=== PATIENT | female | born 1970 | race Caucasian/White ===

== ENCOUNTER 2018-09-03 11:29 | Emergency (ER) | payer BC ==
--- NOTE | 2018-09-03 12:16 | RAD REPORT ---
EXAM DESCRIPTION: Loan Single View09/03/2018 12:07 pm CLINICAL HISTORY: Cough COMPARISON: 2017 FINDINGS: The lungs appear clear of acute infiltrate. The heart is normal size IMPRESSION: No acute abnormalities displayed
[2018-09-03] MEDS ORDERED: DEXAMETHASONE 4 MG TAB ONE (12:52)
[2018-09-03] MEDS ORDERED: ALBUTEROL 2.5 MG/3 ML NEB SOL ONE (12:52)
[2018-09-03] MEDS ORDERED: ASPIRIN EC 81 MG TAB PO ONE (12:53)
[2018-09-03] MEDS ORDERED: HYDROCODONE/CHLORPHEN 5 ML/OSYR ONE (13:09)
--- NOTE | 2018-09-03 13:57 | ER ---
Nurse's Notes [facility] Name: Fiorella Painting Age: 47 yrs Sex: Female : 1970 Arrival Date: 09/03/2018 Time: 11:35 Bed 20 Private MD: Diagnosis: Bronchitis, not specified as acute or chronic Presentation: 09/03 11:37 Presenting complaint: Patient states: productive cough with green sputum x 2 weeks ago. aa5 Transition of care: patient was not received from another setting of care. Onset of symptoms was August 2018. Risk Assessment: Do you want to hurt yourself or someone else? Patient reports no desire to harm self or others. Care prior to arrival: None. 11:37 Method Of Arrival: Ambulatory aa5 11:37 Acuity: RAJ 3 aa5 GENERAL PRACTICE: 11:38 LMP N/A - Irregular menses aa5 Historical: - Allergies: 11:38 Oxycodone HCl; aa5 - Home Meds: 11:38 Metformin Oral [Active]; Paxil Oral [Active]; Seroquel Oral [Active]; aa5 - PMHx: 11:38 Depression; Diabetes - NIDDM; aa5 - PSHx: 11:38 None; aa5 - Immunization history:: Flu vaccine is not up to date. - Social history:: Smoking status: Patient uses tobacco products, smokes one pack cigarettes per day. - Ebola Screening: : No symptoms or risks identified at this time. Screenin:00 Abuse screen: Denies threats or abuse. Denies injuries from another. Nutritional bp screening: No deficits noted. Tuberculosis screening: No symptoms or risk factors identified. Fall Risk None identified. Assessment: 11:45 General: Appears in no apparent distress. comfortable, Behavior is cooperative, bp appropriate for age, anxious. Pain: Denies pain. Neuro: Level of Consciousness is awake, alert, obeys commands, Oriented to person, place, time, situation, Appropriate for age. Cardiovascular: No deficits noted. Respiratory: Reports cough that is. GI: No signs and/or symptoms were reported involving the gastrointestinal system. : No signs and/or symptoms were reported regarding the genitourinary system. EENT: No deficits noted. Derm: No deficits noted. Musculoskeletal: Circulation, motion, and sensation intact. Range of motion: intact in all extremities. 13:00 Reassessment: FAMILY IN ROUTE FOR D/C. VS STABLE ON MONITOR. bp Vital Signs: 11:38 BP 111 / 75; Pulse 71; Resp 18 S; Temp 98.4(TE); Pulse Ox 97% on R/A; Weight 65.77 kg aa5 (R); Height 5 ft. 6 in. (167.64 cm) (R); 13:00 BP 115 / 66; Pulse 64; Resp 16; Pulse Ox 100% ; bp 14:21 BP 108 / 62; Pulse 74; Resp 16; Temp 98.1; Pulse Ox 99% on R/A; Pain 0/10; ch 11:38 Body Mass Index 23.40 (65.77 kg, 167.64 cm) aa5 ED Course: 11:35 Patient arrived in ED. mr 11:37 Triage completed. aa5 11:37 Arm band placed on. aa5 11:42 Les Smith, SULEMA is Primary Nurse. bp 11:43 An Rahman FNP-C is PHCP. snw 11:43 Blaine Willis MD is Attending Physician. snw 12:00 Patient has correct armband on for positive identification. Bed in low position. Call bp light in reach. Side rails up X2. 12:05 X-ray completed. Portable x-ray completed in exam room. Patient tolerated procedure kp1 well. 12:07 Chest Single View XRAY - STROKE In Process Unspecified. EDMS 13:13 No provider procedures requiring assistance completed. Patient did not have IV access bp during this emergency room visit. Administered Medications: 12:40 Drug: Decadron 8 mg Route: PO; bp 13:10 Follow up: Response: No adverse reaction bp 12:40 Drug: Aspirin 81 mg Route: PO; bp 13:10 Follow up: Response: No adverse reaction bp 12:40 Drug: Albuterol 2.5 mg Route: Inhalation; bp 13:05 Drug: Tussionex Pennkinetic ER 5 ml Route: PO; bp Outcome: 13:57 Discharge ordered by . snw 14:21 Discharged to home ambulatory, with family. ch 14:21 Condition: stable 14:21 Discharge instructions given to patient, family, Instructed on discharge instructions, follow up and referral plans. medication usage, Demonstrated understanding of instructions, follow-up care, medications, Prescriptions given X 2. 14:22 Patient left the ED. Signatures: Dispatcher [employer] Yelena Barrett, RN RN An Rahman, STARCH FACTORY LABORER-C STARCH FACTORY LABORER-Joselinew Amanda Cheney Audri, RN RN aa5 Anum Chong [facility] Les Smith RN RN bp
--- NOTE | 2018-09-03 13:58 | EDPHYS ---
Physician Documentation [facility] Name: Fiorella Painting Age: 47 yrs Sex: Female : 1970 Arrival Date: 09/03/2018 Time: 11:35 Bed 20 Private MD: ED Physician Blaine Willis HPI: 09/03 12:36 This 47 yrs old Female presents to ER via Ambulatory with complaints of Cough.snw 12:36 The patient or guardian reports cough, described as moderate, with no sputum, pt just snw recovered from influenza last week. Onset: The symptoms/episode began/occurred suddenly, 2 week(s) ago. Severity of symptoms: At their worst the symptoms were moderate, severe. Associated signs and symptoms: Pertinent positives: chest pain, with cough, Pertinent negatives: fever. It is unknown whether or not the patient has had similar symptoms in the past. It is unknown whether or not the patient has recently seen a physician. CREDIT INTERN: 11:38 LMP N/A - Irregular menses aa5 Historical: - Allergies: 11:38 Oxycodone HCl; aa5 - Home Meds: 11:38 Metformin Oral [Active]; Paxil Oral [Active]; Seroquel Oral [Active]; aa5 - PMHx: 11:38 Depression; Diabetes - NIDDM; aa5 - PSHx: 11:38 None; aa5 - Immunization history:: Flu vaccine is not up to date. - Social history:: Smoking status: Patient uses tobacco products, smokes one pack cigarettes per day. - Ebola Screening: : No symptoms or risks identified at this time. ROS: 12:33 Constitutional: Negative for fever, chills, and weight loss, Eyes: Negative for injury, snw pain, redness, and discharge, ENT: Negative for injury, pain, and discharge, Neck: Negative for injury, pain, and swelling, Abdomen/GI: Negative for abdominal pain, nausea, vomiting, diarrhea, and constipation, Back: Negative for injury and pain, : Negative for injury, bleeding, discharge, and swelling, MS/Extremity: Negative for injury and deformity, Skin: Negative for injury, rash, and discoloration, Neuro: Negative for headache, weakness, numbness, tingling, and seizure. 12:33 Cardiovascular: Positive for chest pain, with cough. 12:33 Respiratory: Positive for cough, rarely productive, harsh cough. Exam: 12:32 Constitutional: This is a well developed, well nourished patient who is awake, alert, snw and in no acute distress. Head/Face: Normocephalic, atraumatic. Eyes: Pupils equal round and reactive to light, extra-ocular motions intact. Lids and lashes normal. Conjunctiva and sclera are non-icteric and not injected. Cornea within normal limits. Periorbital areas with no swelling, redness, or edema. ENT: Nares patent. No nasal discharge, no septal abnormalities noted. Tympanic membranes are normal and external auditory canals are clear. Oropharynx with no redness, swelling, or masses, exudates, or evidence of obstruction, uvula midline. Mucous membranes moist. Neck: Trachea midline, no thyromegaly or masses palpated, and no cervical lymphadenopathy. Supple, full range of motion without nuchal rigidity, or vertebral point tenderness. No Meningismus. Chest/axilla: Normal chest wall appearance and motion. Nontender with no deformity. No lesions are appreciated. Cardiovascular: Regular rate and rhythm with a normal S1 and S2. No gallops, murmurs, or rubs. Normal PMI, no JVD. No pulse deficits. Abdomen/GI: Soft, non-tender, with normal bowel sounds. No distension or tympany. No guarding or rebound. No evidence of tenderness throughout. Back: No spinal tenderness. No costovertebral tenderness. Full range of motion. MS/ Extremity: Pulses equal, no cyanosis. Neurovascular intact. Full, normal range of motion. Neuro: Awake and alert, GCS 15, oriented to person, place, time, and situation. Cranial nerves II-XII grossly intact. Motor strength 5/5 in all extremities. Sensory grossly intact. Cerebellar exam normal. Normal gait. 12:32 Respiratory: the patient does not display signs of respiratory distress, Respirations: normal, Breath sounds: are clear throughout, Bronchitic cough. 12:32 Skin: Appearance: Color: benjamín, Temperature: warm. Vital Signs: 11:38 BP 111 / 75; Pulse 71; Resp 18 S; Temp 98.4(TE); Pulse Ox 97% on R/A; Weight 65.77 kg aa5 (R); Height 5 ft. 6 in. (167.64 cm) (R); 13:00 BP 115 / 66; Pulse 64; Resp 16; Pulse Ox 100% ; bp 14:21 BP 108 / 62; Pulse 74; Resp 16; Temp 98.1; Pulse Ox 99% on R/A; Pain 0/10; ch 11:38 Body Mass Index 23.40 (65.77 kg, 167.64 cm) aa5 MDM: 11:54 Patient medically screened. snw 14:17 Data reviewed: vital signs, nurses notes. Data interpreted: Pulse oximetry: on room air snw is 100 %. Interpretation: normal. Counseling: I had a detailed discussion with the patient and/or guardian regarding: the historical points, exam findings, and any diagnostic results supporting the discharge/admit diagnosis, radiology results, the need for outpatient follow up, for definitive care, to return to the emergency department if symptoms worsen or persist or if there are any questions or concerns that arise at home. Special discussion: Based on the history and exam findings, there is no indication for further emergent testing or inpatient evaluation. I discussed with the patient/guardian the need to see the primary care provider for further evaluation of the symptoms. 09/03 11:43 Order name: Chest Single View XRAY - STROKE; Complete Time: 12:18 snw Administered Medications: 12:40 Drug: Decadron 8 mg Route: PO; bp 13:10 Follow up: Response: No adverse reaction bp 12:40 Drug: Aspirin 81 mg Route: PO; bp 13:10 Follow up: Response: No adverse reaction bp 12:40 Drug: Albuterol 2.5 mg Route: Inhalation; bp 13:05 Drug: Tussionex Pennkinetic ER 5 ml Route: PO; bp Disposition: 15:49 Co-signature as Attending Physician, Blaine Willis MD. ma2 Disposition: 09/03/18 13:57 Discharged to Home. Impression: Bronchitis, not specified as acute or chronic. - Condition is Stable. - Discharge Instructions: Chronic Bronchitis, Steps to Quit Smoking, Smoking Hazards. - Prescriptions for Zyrtec 10 mg Oral Tablet - take 1 tablet by ORAL route once daily As needed; 20 tablet. Albuterol Sulfate 90 mcg/actuation - inhale 1-2 puff by INHALATION route every 4-6 hours; 1 Inhaler. - Work release form, Medication Reconciliation Form, Thank You Letter, Antibiotic Education, Prescription Opioid Use form. - Follow up: Private Physician; When: 2 - 3 days; Reason: Recheck today's complaints, Continuance of care, Re-evaluation by your physician. Follow up: Emergency Department; When: As needed; Reason: Worsening of condition. Signatures: Dispatcher [employer] EDMS Yelena Wilkins RN RN ch An Rahman, LABEL DRIER-C LABEL DRIER-Csnw Sarah Hanks RN RN aa5 Les Smith RN RN bp Blaine Willis MD MD ma2 Corrections: (The following items were deleted from the chart) 14:22 13:57 09/03/2018 13:57 Discharged to Home. Impression: Bronchitis, not specified as ch acute or chronic. Condition is Stable. Discharge Instructions: Chronic Bronchitis, Steps to Quit Smoking, Smoking Hazards. Prescriptions for Zyrtec 10 mg Oral Tablet - take 1 tablet by ORAL route once daily As needed; 20 tablet, Albuterol Sulfate 90 mcg/actuation - inhale 1-2 puff by INHALATION route every 4-6 hours; 1 Inhaler. and Forms are Medication Reconciliation Form, Thank You Letter, Antibiotic Education, Prescription Opioid Use. Follow up: Private Physician; When: 2 - 3 days; Reason: Recheck today's complaints, Continuance of care, Re-evaluation by your physician. Follow up: Emergency Department; When: As needed; Reason: Worsening of condition. snw
[2018-09-03 15:11] VITALS: BP 108/62; TEMP 98.1; O2SAT 99
== END 2018-09-03 14:22 | disposition home or self-care (01) ==
LOC: ER 11:29
DX: J40 Bronchitis, not specified as acute or chronic (principal); E11.9 Type 2 diabetes mellitus without complications; F32.9 Major depressive disorder, single episode, unspecified; F17.210 Nicotine dependence, cigarettes, uncomplicated; Z79.4 Long term (current) use of insulin; Z88.5 Allergy status to narcotic agent
CPT/HCPCS: 71045; 99284

== ENCOUNTER 2019-11-09 22:54 | Inpatient (IN) | payer BC, SELFPAY ==
[2019-11-09 23:53] LABS: Absolute Lymphocytes (CBC) 3.3 K/uL (0.7-4.9); Basophils % 1.3 % (0-1.3); Hematocrit 45.3 % (36.0-45.0); Lymphocytes % 32.9 % (15.3-44.8); MPV 10.8 fL (7.6-11.3); RBC Red Blood Cell Count 4.94 M/uL (3.86-4.86)
[2019-11-10 00:13] LABS: Albumin 3.7 g/dL (3.4-5.0); Bilirubin Direct 0.1 mg/dL (0-0.2); Bilirubin Total 0.3 mg/dL (0.2-1.0); Potassium 4.2 mmol/L (3.5-5.1); Protein, Total 7.9 g/dL (6.4-8.2); Troponin (Emerg Dept Use Only) 0.37 ng/mL (0.0-0.045)
[2019-11-10] MEDS ORDERED: NITROGLYCERIN 0.4 MG/TAB SL ONE (00:17)
[2019-11-10] MEDS ORDERED: ALPRAZOLAM 0.25 MG TABLET PO PRN (00:29)
[2019-11-10] MEDS ORDERED: ONDANSETRON 4 MG/2 ML VIAL IV PRN (00:29)
[2019-11-10] MEDS ORDERED: ACETAMINOPHEN 500 MG TAB PO PRN (00:29)
[2019-11-10] MEDS ORDERED: CLOPIDOGREL 75 MG TABLET ONE (00:33)
[2019-11-10] MEDS ORDERED: ENOXAPARIN 80 MG/0.8 ML SQ ONE (00:33)
--- NOTE | 2019-11-10 00:57 | ER ---
Nurse's Notes [facility] Name: Fiorella Painting Age: 49 yrs Sex: Female : 1970 Arrival Date: 11/09/2019 Time: 22:55 Bed 7 Private MD: Diagnosis: Chest pain, unspecified;Non-ST elevation (NSTEMI) myocardial infarction Presentation: 11/08 23:10 Chief complaint: Patient states: I am having chest pain sharp, non radiating pain rr5 started this morning. i feel nauseous and Difficulty of breathing too. 23:10 Coronavirus screen: Proceed with normal triage. Ebola Screen: Patient negative for rr5 fever greater than or equal to 101.5 degrees Fahrenheit, and additional compatible Ebola Virus Disease symptoms Patient denies exposure to infectious person. Patient denies travel to an Ebola-affected area in the 21 days before illness onset. Initial Sepsis Screen: Does the patient meet any 2 criteria? No. Patient's initial sepsis screen is negative. Does the patient have a suspected source of infection? No. Patient's initial sepsis screen is negative. Risk Assessment: Do you want to hurt yourself or someone else? Patient reports no desire to harm self or others. Onset of symptoms was November 09, 2019. 23:10 Method Of Arrival: Ambulatory rr5 23:10 Acuity: RAJ 3 rr5 23:10 Care prior to arrival: Medication(s) given: ASA, 81 mg, x 2, patient medication. rr5 Triage Assessment: 23:15 General: Appears uncomfortable, Behavior is calm, cooperative. ls4 23:15 Pain: Complains of pain in anterior aspect of left upper chest and mid-sternal area ls4 Pain currently is 10 out of 10 on a pain scale. Quality of pain is described as crushing, sharp. Cardiovascular: Reports chest pain, nausea, shortness of breath, Denies diaphoresis, lightheadedness, palpitations, syncope, vomiting, Capillary refill < 3 seconds Patient's skin is warm and dry. Respiratory: Airway is patent Respiratory effort is even, unlabored, Respiratory pattern is regular. Derm: Skin is pink, warm \T\ dry. Musculoskeletal: No deficits noted. 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 - Social history:: Smoking status: Patient reports the use of cigarette tobacco products, smokes one-half pack cigarettes per day. - Family history:: not pertinent. - Hospitalizations: : No recent hospitalization is reported. Screenin:30 Abuse screen: Denies threats or abuse. Denies injuries from another. Nutritional rr5 screening: No deficits noted. Tuberculosis screening: No symptoms or risk factors identified. Fall Risk IV access (20 points). Total Zaragoza Fall Scale indicates No Risk (0-24 pts). Assessment: 11/09 00:30 Reassessment: Patient appears in no apparent distress at this time. Patient is alert, rr5 oriented x 3, equal unlabored respirations, skin warm/dry/pink. Patient states feeling better. Patient states symptoms have improved. 00:30 Pain: Pain currently is 5 out of 10 on a pain scale. rr5 01:48 General: see triage note. . ls4 02:03 Pain: Pain does not radiate. Pain began suddenly. rr5 Vital Signs: 11/08 23:10 BP 142 / 92; Pulse 77; Resp 17; Temp 98; Pulse Ox 98% ; Weight 65.77 kg; Height 5 ft. 6 rr5 in. (167.64 cm); Pain 10/10; 11/09 00:30 BP 126 / 90; Pulse 71; Resp 16; Pulse Ox 99% ; Pain 5/10; rr5 01:39 BP 135 / 86; Pulse 72; Resp 14; Pulse Ox 100% on R/A; Pain 4/10; ls4 11/08 23:10 Body Mass Index 23.40 (65.77 kg, 167.64 cm) rr5 ED Course: 11/08 22:55 Patient arrived in ED. ag3 23:15 Triage completed. rr5 23:15 Adolph Bellamy MD is Attending Physician. rn 23:15 Arm band placed on right wrist. rr5 23:15 Bed in low position. Call light in reach. Side rails up X 1. court recording monitor on. Pulse ls4 ox on. NIBP on. 23:15 Warm blanket given. Verbal reassurance given. Diet: Patient is NPO. ls4 23:25 Inserted saline lock: 18 gauge in right antecubital area, using aseptic technique. rr5 ,using aseptic technique. inserted by elida LEONE Blood collected. 23:46 XRAY Chest (1 view) In Process Unspecified. EDMS 11/09 00:27 Elida Wright, RN is Primary Nurse. ls4 00:56 Blaine Parrish MD is Hospitalizing Provider. rn 01:44 No provider procedures requiring assistance completed. ls4 02:03 IV is patent, with fluids infusing freely, with good blood return, Patient admitted, IV rr5 remains in place. Patient maintains SpO2 saturation greater than 95% on room air. Administered Medications: 00:14 Drug: Nitroglycerin 0.4 mg Route: Sublingual; ls4 02:02 Follow up: Response: No adverse reaction rr5 00:30 Drug: PlaVIX 75 mg Route: PO; rr5 02:02 Follow up: Response: No adverse reaction rr5 00:30 Drug: Lovenox 1 mg/kg Route: Sub-Q; Site: right lower abdomen; rr5 02:02 Follow up: Response: No adverse reaction rr5 Outcome: 00:56 Decision to Hospitalize by Provider. rn 02:01 Condition: stable rr5 02:02 Admitted to Med/surg accompanied by tech, via wheelchair, room 215, with chart, Report rr5 called to montrell leone 02:02 Instructed on the need for admit, Demonstrated understanding of instructions. 02:03 Patient left the ED. rr5 Signatures: Dispatcher [employer] EDND Adolph Bellamy MD MD rn Gomez, Alice ag3 Elida Wright, RN RN ls4 Og Munoz RN RN rr5
--- NOTE | 2019-11-10 02:05 | EDPHYS ---
Physician Documentation [facility] Name: Fiorella Painting Age: 49 yrs Sex: Female : 1970 Arrival Date: 11/09/2019 Time: 22:55 Bed 7 Private MD: ED Physician Adolph Bellamy HPI: 11/08 23:36 This 49 yrs old Female presents to ER via Ambulatory with complaints of Chest rn Pain. 23:36 The patient or guardian reports chest pain that is located primarily in the substernal rn area. Onset: this morning. The pain does not radiate. The chest pain is described as a heaviness, squeezing. Duration: The patient or guardian reports multiple episodes, that are intermittent. Modifying factors: The symptoms are alleviated by standing up. the symptoms are aggravated by nothing. Severity of pain: At its worst the pain was moderate in the emergency department the pain is unchanged. The patient has experienced a previous episode. Reports substernal chest pain, non-radiating, assoc with nausea, intermittent, no trauma, no fever/cough/abd pain. Reports steadily getting worse throughout the day.. 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 - Social history:: Smoking status: Patient reports the use of cigarette tobacco products, smokes one-half pack cigarettes per day. - Family history:: not pertinent. - Hospitalizations: : No recent hospitalization is reported. ROS: 23:36 Constitutional: Negative for fever, chills, and weight loss, Eyes: Negative for injury, rn pain, redness, and discharge, Neck: Negative for injury, pain, and swelling, Cardiovascular: Negative for palpitations, and edema, Respiratory: Negative for shortness of breath, cough, wheezing, and pleuritic chest pain, Abdomen/GI: Negative for abdominal pain, vomiting, diarrhea, and constipation, MS/Extremity: Negative for injury and deformity, Skin: Negative for injury, rash, and discoloration, Neuro: Negative for headache, weakness, numbness, tingling, and seizure. Exam: 23:36 Constitutional: This is a well developed, well nourished patient who is awake, alert, rn and in no acute distress. Ambulatory to room without difficulty or assistance. Head/Face: Normocephalic, atraumatic. Cardiovascular: Regular rate and rhythm with a normal S1 and S2. No gallops, murmurs, or rubs. No JVD. No pulse deficits. Respiratory: Lungs have equal breath sounds bilaterally, clear to auscultation. No increased work of breathing, no retractions or nasal flaring. Abdomen/GI: soft, non-tender Skin: Warm, dry with normal turgor. Normal color with no rashes, no lesions, and no evidence of cellulitis. MS/ Extremity: Pulses equal, no cyanosis. Neurovascular intact. Full, normal range of motion. Equal circumference. Neuro: Awake and alert, GCS 15, oriented to person, place, time, and situation. Cranial nerves II-XII grossly intact. Motor strength 5/5 in all extremities. Sensory grossly intact. Cerebellar exam normal. Normal gait. 23:36 ECG was reviewed by the Attending Physician. rn Vital Signs: 23:10 BP 142 / 92; Pulse 77; Resp 17; Temp 98; Pulse Ox 98% ; Weight 65.77 kg; Height 5 ft. 6 rr5 in. (167.64 cm); Pain 10/10; 08 00:30 BP 126 / 90; Pulse 71; Resp 16; Pulse Ox 99% ; Pain 5/10; rr5 01:39 BP 135 / 86; Pulse 72; Resp 14; Pulse Ox 100% on R/A; Pain 4/10; ls4 11/08 23:10 Body Mass Index 23.40 (65.77 kg, 167.64 cm) rr5 MDM: 11/08 23:15 Patient medically screened. rn 11/09 00:51 Differential diagnosis: acute myocardial infarction, coronary artery disease pleurisy, rn pneumothorax, stable angina, unstable angina. The patient was not given aspirin in the Emergency Department. Patient reports taking aspirin within the past 24 hours. Data reviewed: vital signs, nurses notes, lab test result(s), EKG, radiologic studies, plain films, and as a result, I will discharge patient. Counseling: I had a detailed discussion with the patient and/or guardian regarding: the historical points, exam findings, and any diagnostic results supporting the discharge/admit diagnosis, lab results, radiology results, the need for further work-up and treatment in the hospital. Response to treatment: the patient's symptoms have markedly improved after treatment, and as a result, I will admit patient. Admission orders: after a detailed discussion of the patient's condition and case, the admit orders are written by me. ED course: Pt with improved pain after nitro, + trop and inverted/biphasic twaves anteroseptal leads, admitted to Dr. Parrish. Took 2 full dose aspirin prior to arrival. Given plavix and lovenox here. . 11/08 23:32 Order name: Basic Metabolic Panel; Complete Time: 00:13 rn 11/08 23:32 Order name: CBC with Diff; Complete Time: 00: 11/08 23:32 Order name: LFT's; Complete Time: 00: 11/08 23:32 Order name: NT PRO-BNP; Complete Time: 00: 11/08 23:32 Order name: Troponin (emerg Dept Use Only); Complete Time: 00: rn 11/09 00:40 Order name: Lipid Profile [facility] 11/08 23:32 Order name: XRAY Chest (1 view) 11/08 23:32 Order name: EKG; Complete Time: 23:34 rn 11/09 00:40 Order name: Echo with Doppler [facility] 11/09 00:40 Order name: Troponin I [facility] 11/09 00:40 Order name: Troponin I [facility] 11/08 23:32 Order name: Cardiac monitoring; Complete Time: 00:28 rn 11/08 23:32 Order name: EKG - Nurse/Tech; Complete Time: 00:28 rn 11/08 23:32 Order name: IV Saline Lock; Complete Time: 00: rn 11/08 23:32 Order name: Labs collected and sent; Complete Time: 00:34 rn 11/08 23:32 Order name: O2 Per Protocol; Complete Time: 00:34 rn 11/08 23:32 Order name: O2 Sat Monitoring; Complete Time: 00:34 rn 11/09 00:40 Order name: CONS Physician Consult [facility] 11/09 00:40 Order name: EKG Electrocardiogram [facility] 11/09 00:40 Order name: EKG Electrocardiogram [facility] EC/07 23:36 Rate is 70 beats/min. Rhythm is regular. Right axis deviation noted. QRS is positive in rn lead aVF and negative in lead I. [place] interval is normal. QRS interval is normal. QT interval is normal. No Q waves. T waves are Inverted in leads V2, V3, V4, V5. No ST changes noted. Clinical impression: NSR w/ Non-specific ST/T Changes. Interpreted by me. Reviewed by me. Administered Medications: 11/09 00:14 Drug: Nitroglycerin 0.4 mg Route: Sublingual; ls4 02:02 Follow up: Response: No adverse reaction rr5 00:30 Drug: PlaVIX 75 mg Route: PO; rr5 02:02 Follow up: Response: No adverse reaction rr5 00:30 Drug: Lovenox 1 mg/kg Route: Sub-Q; Site: right lower abdomen; rr5 02:02 Follow up: Response: No adverse reaction rr5 Disposition: 11/10/19 00:56 Hospitalization ordered by Blaine Parrish for Inpatient Admission. Preliminary diagnosis are Chest pain, unspecified, Non-ST elevation (NSTEMI) myocardial infarction. - Bed requested for Telemetry/MedSurg (Inpatient). - Status is Inpatient Admission. rr5 - Condition is Stable. - Problem is new. - Symptoms have improved. Signatures: Dispatcher [employer] [facility] Estephanie Daniels RN RN dw Adolph Bellamy MD MD rn Stewart, Lisa, RN RN ls4 Og Munoz RN RN rr5 Corrections: (The following items were deleted from the chart) 01: 00:56 Hospitalization Ordered by Blaine Parrish MD for Inpatient Admission. Preliminary darby diagnosis is Chest pain, unspecified; Non-ST elevation (NSTEMI) myocardial infarction. Bed requested for Telemetry/MedSurg (Inpatient). Status is Inpatient Admission. Condition is Stable. Problem is new. Symptoms have improved. rn 02:03 01:11/10/2019 00:56 Hospitalization Ordered by Blaine Parrish MD for Inpatient rr5 Admission. Preliminary diagnosis is Chest pain, unspecified; Non-ST elevation (NSTEMI) myocardial infarction. Bed requested for Telemetry/MedSurg (Inpatient). Status is Inpatient Admission. Condition is Stable. Problem is new. Symptoms have improved. dw
[2019-11-10 03:55] VITALS: BMI 22.1
[2019-11-10 05:24] LABS: Magnesium 1.9 mg/dL (1.8-2.4); Phosphorus 3.1 mg/dL (2.5-4.9)
--- NOTE | 2019-11-10 08:32 | RAD REPORT ---
EXAM DESCRIPTION: RAD - Chest Single View - 11/09/2019 11:46 pm CLINICAL HISTORY: CHEST PAIN Chest pain. COMPARISON: Chest Single View dated 09/03/2018; Chest Single View dated 10/29/2016 FINDINGS: Portable technique limits examination quality. The lungs are grossly clear. The heart is normal in size. No displaced fractures. IMPRESSION: No acute intrathoracic process suspected.
[2019-11-10] MEDS ORDERED: ENOXAPARIN 40 MG/0.4 ML SQ SCH (09:00)
[2019-11-10] MEDS ORDERED: METOPROLOL TAR 50 MG TAB PO SCH (09:00)
[2019-11-10] MEDS ORDERED: CLOPIDOGREL 75 MG TABLET PO SCH (09:00)
[2019-11-10] MEDS ORDERED: ASPIRIN EC 81 MG TAB PO SCH (09:00)
[2019-11-10] MEDS ORDERED: PARoxetine HCL 10 MG TAB PO SCH (09:00)
[2019-11-10 09:02] LABS: Thyroid Stimulating Hormone 0.824 uIU/mL (0.360-3.740)
--- NOTE | 2019-11-10 09:07 | P.HP ---
Certification for Inpatient Patient admitted to: Inpatient With expected LOS: >2 Midnights Patient will require the following post-hospital care: None Practitioner: I am a practitioner with admitting privileges, knowledge of patient current condition, hospital course, and medical plan of care. Services: Services provided to patient in accordance with Admission requirements found in Title 42 Section 412.3 of the Code of Federal Regulations Patient History Date of Service: 11/10/19 Reason for admission: Chest pain and shortness of breath/non ST-elevation myocardial infarction History of Present Illness: Patient is a 49-year-old female who came to the hospital with chest discomfort. Pain was mainly in the substernal region. The patient described this chest pain as heaviness. She felt like someone was sitting on her chest. There was no radiation of the chest pain. Patient had some nausea as well as some shortness of breath. Decision was made to admit the patient to the hospital for evaluation. Patient's initial troponin was elevated. Patient be admitted to the hospital with a non ST-elevation myocardial infarction. Will get Cardiology consultation for further evaluation. The patient's troponin will be repeated in 8 hr. If this continues to be elevated and patient may need further intervention per Cardiology. Allergies oxycodone HCl [From OxyContin] Allergy (Mild, Verified 11/10/19 02:30) Nausea/Vomiting Home Medications: Metformin ER [Glucophage ER*] 1,000 mg PO BID 10/29/16 PARoxetine HCL [Paxil*] 20 mg PO DAILY 10/29/16 Quetiapine Fumarate [Seroquel] 100 mg PO BEDTIME 11/10/19 - Past Medical/Surgical History Has patient received pneumonia vaccine in the past: No Diabetic: Yes -: Type 2 diabetes -: depression Past Surgical History: Patient denies surgical history - Family History Father Medical History: Stroke - Social History Smoking Status: Current some day smoker Alcohol use: No CD- Drugs: No Caffeine use: Yes Place of Residence: Home Review of Systems 10-point ROS is otherwise unremarkable Physical Examination - Vital Signs Temperature: 97.2 F Blood Pressure: 97/57 Pulse: 70 Respirations: 18 Pulse Ox (%): 96 - Physical Exam General: Alert, In no apparent distress, Oriented x3 HEENT: Atraumatic, PERRLA, Mucous membr. moist/pink, EOMI, Sclerae nonicteric Neck: Supple, 2+ carotid pulse no bruit, No LAD, Without JVD or thyroid abnormality Respiratory: Clear to auscultation bilaterally, Normal air movement Cardiovascular: Regular rate/rhythm, Normal S1 S2, No murmurs Gastrointestinal: Normal bowel sounds, Soft and benign, Non-distended, No tenderness Musculoskeletal: No clubbing, No swelling, No tenderness Integumentary: No rashes Neurological: Normal gait, Normal speech, Normal strength at 5/5 x4 extr, Normal tone, Sensation intact, Cranial nerves 3-12 intact, Normal affect Lymphatics: No axilla or inguinal lymphadenopathy - Studies Laboratory Data (last 24 hrs) 11/09/19 23:39: WBC 10.0, Hgb 15.2 H, Hct 45.3 H, Plt Count 178 11/09/19 23:39: Sodium 137, Potassium 4.2, BUN 17, Creatinine 1.30, Glucose 308 H, Total Bilirubin 0.3, AST 27, ALT 41, Alkaline Phosphatase 106 Assessment & Plan - Problems (Diagnosis) (1) Chest pain, rule out acute myocardial infarction Current Visit: Yes Status: Acute (2) Non-ST elevation myocardial infarction (NSTEMI) Current Visit: Yes Status: Acute (3) Dyspnea Current Visit: Yes Status: Acute (4) Nausea Current Visit: Yes Status: Acute (5) Depression Current Visit: Yes Status: Acute (6) Type 2 diabetes mellitus Current Visit: Yes Status: Acute - Plan 1. Serial troponins and EKG 2. Cardiology consultation 3. Echocardiogram and further intervention per Cardiology 4. Anti-platelet therapy, anti coagulation, beta-ruthie, statin, and O2 as needed 5. IV morphine for pain 6. Nitro p.r.n. 7. Strict blood pressure and blood sugar control 8. GI and DVT prophylaxis Discharge Plan: Psychiatry - Advance Directives Does patient have a Living Will: No Does patient have a Durable POA for Healthcare: No - Code Status/Comfort Care Code Status Assessed: Yes Code Status: Full Code Critical Care: No Time Spent Managing PTS Care (In Minutes): 45
--- NOTE | 2019-11-10 10:35 | EKG ---
Test Date: 2019-11-09 Test Time: 23:28:50 Bar Helper: RR MEASUREMENT RESULTS: Intervals: Rate: 70 IA: 182 QRSD: 76 QT: 386 QTc: 416 [place]: P: 64 IA: 182 QRS: 100 T: 89 INTERPRETIVE STATEMENTS: Normal sinus rhythm Rightward axis T wave abnormality, consider anterior ischemia Abnormal ECG Compared to ECG 11/09/2019 23:28:25 No significant changes Electronically Signed On 11-10-19 10:34:40 CDT by Markus Parra
--- NOTE | 2019-11-10 10:35 | EKG ---
Test Date: 2019-11-09 Test Time: 23:28:25 Gas Engine Mechanic: RR MEASUREMENT RESULTS: Intervals: Rate: 81 ND: 190 QRSD: 76 QT: 374 QTc: 434 [place]: P: 77 ND: 190 QRS: 97 T: 86 INTERPRETIVE STATEMENTS: Normal sinus rhythm Possible Left atrial enlargement Rightward axis T wave abnormality, consider anterior ischemia Abnormal ECG No previous ECG available for comparison Electronically Signed On 11-10-19 10:34:41 CDT by Markus Parra
[2019-11-10] MEDS ORDERED: NA CHLORIDE 0.9% 500 ML IV ONE (12:09)
[2019-11-10] MEDS ORDERED: D50W 25 GM/50 ML SYRINGE/VIAL IV PRN (15:04)
[2019-11-10] MEDS ORDERED: GLUCAGON 1 MG/VIAL IM PRN (15:04)
--- NOTE | 2019-11-10 15:45 | P.DS ---
Admission Date: 11/10/19 Discharge Date: 11/10/19 Disposition: ROUTINE DISCHARGE Discharge Condition: GOOD Reason for Admission: Chest pain and shortness of breath/non ST-elevation myocardial infarction Consultations: Cardiology-Dr. Parra Procedures: ECHO: WNL per cardiology Medical problem list: Chest pain secondary to NSTEMI suspect CAD Hypertension Hyperlipidemia Diabetes mellitus type 2 Depression with anxiety Brief History of Present Illness: 49-year-old female with history of diabetes and depression presented with chest pain. Patient was found to have elevated troponin suspected NSTEMI. Patient admitted for further evaluation. Hospital Course: Patient presented with chest pain. Patient had elevated troponin suspected NSTEMI noted. Patient was seen and evaluated by Cardiology. Cardiology performed echocardiogram which was unremarkable. Cardiology recommends medical therapy at this time. At discharge patient will continue with aspirin 81 mg daily, Lipitor 80 mg daily, folic acid 1 mg daily, and metoprolol 12.5 mg daily. May need to hold blood pressure medication metoprolol if blood pressure systolic less than 110. Patient will need a follow up with cardiology within 1 week to further monitor and address. Patient with diabetes mellitus type 2. A1c 8.8. Patient needs better control. At discharge patient will continue with metformin a 1000 mg 1 pill twice daily. Glipizide 5 mg daily has been added. Recommend to maintain blood sugar less 140 fasting and less than 200 after meals. Further adjustment may be required. This can be done with the help of her PCP. Patient with depression with anxiety. At discharge she will continue with Paxil 20 mg daily and Seroquel 100 mg daily. Vital Signs/Physical Exam: Temp Pulse Resp BP Pulse Ox 97.2 F 65 16 93/60 96 11/10/19 12:00 11/10/19 12:00 11/10/19 12:00 11/10/19 12:00 11/10/19 12:00 General: Alert, In no apparent distress, Oriented x3, Cooperative HEENT: Atraumatic Neck: Supple Respiratory: Clear to auscultation bilaterally, Normal air movement Cardiovascular: Normal pulses, Regular rate/rhythm Gastrointestinal: Normal bowel sounds, Soft and benign, Non-distended Integumentary: No erythema, No warmth, No cyanosis Neurological: Normal speech, Normal strength at 5/5 x4 extr, Normal tone, Normal affect Laboratory Data at Discharge: WBC 10.0 K/uL (4.3-10.9) 11/09/19 23:39 Hgb 15.2 g/dL (12.0-15.0) H 11/09/19 23:39 Hct 45.3 % (36.0-45.0) H 11/09/19 23:39 Plt Count 178 K/uL (152-406) 11/09/19 23:39 Sodium 137 mmol/L (136-145) 11/09/19 23:39 Potassium 4.2 mmol/L (3.5-5.1) 11/09/19 23:39 BUN 17 mg/dL (7-18) 11/09/19 23:39 Creatinine 1.30 mg/dL (0.55-1.3) 11/09/19 23:39 Glucose 308 mg/dL (74-106) H 11/09/19 23:39 Phosphorus Cancelled 11/10/19 05:00 Magnesium Cancelled 11/10/19 05:00 Total Bilirubin 0.3 mg/dL (0.2-1.0) 11/09/19 23:39 AST 27 U/L (15-37) 11/09/19 23:39 ALT 41 U/L (12-78) 11/09/19 23:39 Alkaline Phosphatase 106 U/L (45-117) 11/09/19 23:39 Troponin I 2.05 ng/mL (0.0-0.045) H* 11/10/19 12:58 Triglycerides 165 mg/dL (<150) H 11/10/19 04:14 Cholesterol 198 mg/dL (<200) 11/10/19 04:14 HDL Cholesterol 45 mg/dL (40-60) 11/10/19 04:14 Cholesterol/HDL Ratio 4.40 11/10/19 04:14 Home Medications: Metformin ER [Glucophage ER*] 1,000 mg PO BID 10/29/16 PARoxetine HCL [Paxil*] 20 mg PO DAILY 10/29/16 Aspirin [Aspirin EC 81 MG] 81 mg PO DAILY #90 tablet. 11/10/19 Atorvastatin Calcium [Lipitor] 80 mg PO DAILY #30 tablet 11/10/19 Folic Acid 1 mg PO DAILY #30 tablet 11/10/19 Metoprolol Tartrate 12.5 mg PO DAILY #30 tablet 11/10/19 Quetiapine Fumarate [Seroquel] 100 mg PO BEDTIME 11/10/19 glipiZIDE [Glipizide] 5 mg PO DAILY #90 tablet 11/10/19 New Medications: Aspirin [Aspirin EC 81 MG] 81 mg PO DAILY #90 tablet. Folic Acid 1 mg PO DAILY #30 tablet glipiZIDE [Glipizide] 5 mg PO DAILY #90 tablet Atorvastatin Calcium [Lipitor] 80 mg PO DAILY #30 tablet Metoprolol Tartrate 12.5 mg PO DAILY #30 tablet Patient Discharge Instructions: 1. Recommend follow up with PCP in 1 week to follow up this hospitalization. 2. Patient presented with chest pain. Patient had elevated troponin suspected NSTEMI noted. Patient was seen and evaluated by Cardiology. Cardiology performed echocardiogram which was unremarkable. Cardiology recommends medical therapy at this time. At discharge patient will continue with aspirin 81 mg daily, Lipitor 80 mg daily, folic acid 1 mg daily, and metoprolol 12.5 mg daily. May need to hold blood pressure medication metoprolol if blood pressure systolic less than 110. Patient will need a follow up with cardiology within 1 week to further monitor and address. 3. Patient with diabetes mellitus type 2. A1c 8.8. Patient needs better control. At discharge patient will continue with metformin a 1000 mg 1 pill twice daily. Glipizide 5 mg daily has been added. Recommend to maintain blood sugar less 140 fasting and less than 200 after meals. Further adjustment may be required. This can be done with the help of her PCP. 4. Patient with depression with anxiety. At discharge she will continue with Paxil 20 mg daily and Seroquel 100 mg daily. Diet: ADA Activity: Ad lópez Time spent managing pt's care (in minutes): 55
[2019-11-10 16:04] VITALS: O2SAT 97
[2019-11-10 16:28] VITALS: BP 103/70; TEMP 97.4
[2019-11-10] MEDS ORDERED: INSULIN -REGULAR HUMAN 50 UNIT/0.5 ML ML SQ SCH (16:30)
[2019-11-10] MEDS ORDERED: QUETIAPINE 100MG TAB PO SCH (21:00)
[2019-11-10] MEDS ORDERED: ATORVASTATIN 20 MG TAB PO SCH (21:00)
--- NOTE | 2019-11-11 06:34 | CON ---
Date of Consultation: 11/10/2019 Ms. Painting is a 49-year-old woman. She was admitted to Dr. Parrish's service on 11/10/2019. [facility] Reason For Consultation: Chest pain, elevated troponin. History Of Present Illness: Ms. Painting is a patient who is 49, has no previous cardiac history in the past, came in with diabetes, anxiety, depression, and chest pain that is midsternal radiating to the back, that has been going on for about a week. It resolved yesterday after use of aspirin and beta- ruthie. She is pain-free now. She denied any PND, orthopnea, pedal edema, palpitations, or syncope . She denied any nausea or vomiting or diaphoresis or shortness of breath. Family History: Negative. Medications: At home metformin, Paxil, and Seroquel. Review of Systems: Negative. Social History: Positive for tobacco. Family History: Noncontributory. Physical Examination: General: She was in no acute distress. No chest pain. Normal rhythm. HEENT: Negative. Neck: Supple without any bruit, lymphadenopathy, JVD, or thyromegaly. Chest: Clear to auscultation and percussion. Cardiac: Revealed a regular rhythm and rate. No murmurs, gallops, or rubs. Abdomen: Benign. Extremities: Revealed no clubbing, cyanosis, or edema. Diagnostic Data: Her glucose was 308. Her troponin is 1.51. The rest of the blood work is unremark able. Her chest x-ray was negative. EKG showed possible anterior ischemia. Impression And Plan: Chest pain with abnormal EKG, elevated troponin suggestive of acute coronary sy ndrome. Patient is pain-free right now. She has multiple cardiac risk factors including diabetes an d high triglyceride and history of smoking. Ms. Painting is presently on aspirin, Lovenox Lipitor, beta blockers, and insulin. She is pain-free. She is also on Paxil and Seroquel. I suggested a heart c atheterization on Ms. Painting when I was discussing the case with her, but she is hesitant at this poin t. She preferred to be treated medically and I agreed with her. I think if she continues to have ch est pain despite beta-blockers, aspirin, and statin therapy, I think she needs to be cathed to rule o ut coronary artery disease. I will make sure Ms. Painting sees me in the office in the next few days. Case was discussed with Dr. Valdivia. Her diabetes is very poorly controlled and that needs to be addr essed. JORGE L/MODL Voice ID: [id number] Report ID: [id number]
--- NOTE | 2019-11-13 07:37 | ECHO ---
HEIGHT: 5 ft 6.5 in WEIGHT: 139 lb 1.6 oz DATE OF STUDY: 11/10/[address]: Blaine Parrish MD 2-DIMENSIONAL: YES M.MODE: YES DOPPLER: YES COLOR FLOW: YES TDS: YES PORTABLE: DEFINITY: BUBBLE STUDY: DIAGNOSIS: NON-ST ELEVATION MYOCARDIAL INFARCTION CARDIAC HISTORY: CATHERIZATION: NO SURGERY: NO PROSTHETIC VALVE: NO PACEMAKER: NO MEASUREMENTS (cm) DIASTOLIC (NORMALS) SYSTOLIC (NORMALS) IVSd 0.9 (0.6-1.2) LA Diam 2.5 (1.9-4.0) LVEF 75% LVIDd 4.0 (3.5-5.7) LVIDs 2.3 (2.0-3.5) %FS 44% LVPWd 1.0 (0.6-1.2) Ao Diam 2.4 (2.0-3.7) 2 DIMENSIONAL ASSESSMENT: RIGHT ATRIUM: NORMAL LEFT ATRIUM: NORMAL RIGHT VENTRICLE: NORMAL LEFT VENTRICLE: NORMAL TRICUSPID VALVE: NORMAL MITRAL VALVE: NORMAL PULMONIC VALVE: NORMAL AORTIC VALVE: NORMAL PERICARDIAL EFFUSION: NONE AORTIC ROOT: NORMAL LEFT VENTRICULAR WALL MOTION: NORMAL DOPPLER/COLOR FLOW: NORMAL COMMENTS: NORMAL 2-DIMENSIONAL ECHOCARDIOGRAM WITH DOPPLER. NO WALL MOTION ABNORMALITY. NO EFFUSION. TECHNICALLY DIFFICULT STUDY. TECHNOLOGIST: LUCILA CARCAMO
== END 2019-11-10 18:02 | disposition home or self-care (01) | DRG 282 ==
LOC: ER 22:54 → ERHOLD 11-10 00:47 → 2ND 11-10 01:55
PROVIDERS: ADMIT Hospitalist; ATTEND Hospitalist
DX: I21.4 Non-ST elevation (NSTEMI) myocardial infarction (principal); I25.10 Atherosclerotic heart disease of native coronary artery without angina pectoris; E11.9 Type 2 diabetes mellitus without complications; I10 Essential (primary) hypertension; F41.8 Other specified anxiety disorders; E78.5 Hyperlipidemia, unspecified; F17.200 Nicotine dependence, unspecified, uncomplicated; Z79.84 Long term (current) use of oral hypoglycemic drugs; Z79.82 Long term (current) use of aspirin; Z79.899 Other long term (current) drug therapy; Z88.5 Allergy status to narcotic agent
CPT/HCPCS: 36415; 71045; 80048; 80061; 80076; 82947; 83036; 83735; 83880; 84100; 84439; 84443; 84484; 85025; 93005; 93306; 96372; 99285; J1650; J7040

== ENCOUNTER 2021-09-29 18:41 | Emergency (ER) | payer OTHER, SELFPAY ==
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
[2021-09-29] MEDS ORDERED: KETOROLAC 30 MG/ML INJ ONE (20:12)
[2021-09-29] MEDS ORDERED: CYCLOBENZAPRINE 10 MG TAB ONE (20:12)
[2021-09-29 21:22] VITALS: BP 151/85; O2SAT 98
[2021-09-29 21:23] VITALS: TEMP 97.7
== END 2021-09-29 20:18 | disposition home or self-care (01) ==
LOC: ER 18:41
DX: M54.50 Low back pain, unspecified (principal); M54.2 Cervicalgia; V49.40XA Driver injured in collision with unspecified motor vehicles in traffic accident, initial encounter; E11.9 Type 2 diabetes mellitus without complications; F32.A Depression, unspecified; Z88.5 Allergy status to narcotic agent; Z72.0 Tobacco use
CPT/HCPCS: 70450; 71250; 72125; 96372; 99284

== ENCOUNTER 2022-04-30 17:45 | Emergency (ER) | payer SELFPAY ==
--- NOTE | 2022-04-30 19:34 | ER ---
Nurse's Notes [facility] Name: Fiorella Painting Age: 51 yrs Sex: Female : 1970 Arrival Date: 04/30/2022 Time: 17:51 Bed 24 Private MD: Diagnosis: Acute upper respiratory infection, unspecified Presentation: 04/30 18:07 Chief complaint:. ld1 18:09 Chief complaint: Patient states: Body aches, chills, cough, fatigue X 3 days. ld1 Coronavirus screen: Client presents with at least one sign or symptom that may indicate coronavirus-19. Standard/surgical mask placed on the client. Ebola Screen: No symptoms or risks identified at this time. Initial Sepsis Screen: Does the patient meet any 2 criteria? No. Patient's initial sepsis screen is negative. Does the patient have a suspected source of infection? No. Patient's initial sepsis screen is negative. Risk Assessment: Do you want to hurt yourself or someone else? Patient reports no desire to harm self or others. Onset of symptoms was April 30, 2022. 18:09 Method Of Arrival: Ambulatory ld1 18:09 Acuity: RAJ 4 ld1 Triage Assessment: 18:07 Headache History: Denies prior headaches. General: Appears in no apparent distress. ld1 comfortable, Behavior is calm, cooperative, appropriate for age. Pain: Denies pain. EENT: Eyes AUSTYN eyes burning. Neuro: Level of Consciousness is awake, alert, obeys commands, Oriented to person, place, time, situation. Cardiovascular: Capillary refill < 3 seconds Patient's skin is warm and dry. Respiratory: Airway is patent Respiratory effort is even, unlabored. GI: Abdomen is flat, non-distended. : No signs and/or symptoms were reported regarding the genitourinary system. Derm: No signs and/or symptoms reported regarding the dermatologic system. Musculoskeletal: No signs and/or symptoms reported regarding the musculoskeletal system. 18:53 Pain: Also complains of diaphoresis. 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 - Social history:: Smoking status: Patient reports the use of cigarette tobacco products, smokes one-half pack cigarettes per day, Patient/guardian denies using alcohol. Screenin:52 Abuse screen: Denies threats or abuse. Denies injuries from another. Nutritional eh3 screening: No deficits noted. Tuberculosis screening: No symptoms or risk factors identified. Fall Risk None identified. Assessment: 18:52 General: Appears in no apparent distress. uncomfortable, Behavior is calm, cooperative, eh3 appropriate for age. Pain: Complains of pain in head Pain currently is 7 out of 10 on a pain scale. Quality of pain is described as aching, Pain began 2-3 days ago. Is continuous. Neuro: Level of Consciousness is awake, alert, obeys commands, Oriented to person, place, time, situation. Cardiovascular: Capillary refill < 3 seconds Patient's skin is warm and dry. Respiratory: Airway is patent Respiratory effort is even, unlabored, Respiratory pattern is regular, symmetrical. GI: No signs and/or symptoms were reported involving the gastrointestinal system. : No signs and/or symptoms were reported regarding the genitourinary system. EENT: No signs and/or symptoms were reported regarding the EENT system. Derm: No signs and/or symptoms reported regarding the dermatologic system. Musculoskeletal: Circulation, motion, and sensation intact. Range of motion: intact in all extremities. Vital Signs: 18:07 BP 107 / 70; Pulse 82; Resp 18; Temp 97.9(TE); Pulse Ox 96% on R/A; Weight 49.9 kg; ld1 Height 5 ft. 6 in. (167.64 cm); Pain 0/10; 18:53 BP 92 / 60; Pulse 78; Resp 16; Temp 98.5(O); Pulse Ox 98% on R/A; eh3 18:07 Body Mass Index 17.75 (49.90 kg, 167.64 cm) ld1 ED Course: 17:51 Patient arrived in ED. mr 18:07 Arm band placed on right wrist. ld1 18:10 Triage completed. ld1 18:11 Yvonne Bynum FNP-C is [facility]. kb 18:12 Jorge Jenkins MD is Attending Physician. kb 18:46 Wong, Marci, RN is Primary Nurse. eh3 18:52 Patient has correct armband on for positive identification. Bed in low position. Call eh3 light in reach. Side rails up X2. Client placed on continuous cardiac and pulse oximetry monitoring. NIBP monitoring applied. Door closed. Noise minimized. 19:34 No provider procedures requiring assistance completed. Patient did not have IV access eh3 during this emergency room visit. Administered Medications: No medications were administered Medication: 19:34 VIS not applicable for this client. eh3 Outcome: 19:33 Discharge ordered by MD. kb 19:46 Patient left the ED. eh3 Signatures: Yvonne Bynum, FITNESS SALES ASSOCIATE-C FITNESS SALES ASSOCIATE-Amanda Enriquez Lauren, RN RN ld1 Marci Wong, RN RN eh3
--- NOTE | 2022-04-30 19:34 | EDPHYS ---
Physician Documentation [facility] Name: Fiorella Painting Age: 51 yrs Sex: Female : 1970 Arrival Date: 04/30/2022 Time: 17:51 Bed 24 Private MD: ED Physician Jorge Jenkins HPI: 04/30 19:56 This 51 yrs old Female presents to ER via Ambulatory with complaints of Headache, Body kb aches, Eye Problem. 19:56 The patient or guardian reports cough, that is intermittent, described as mild, flu kb symptoms, low-grade fever, myalgias. Onset: The symptoms/episode began/occurred 5 day(s) ago. Severity of symptoms: At their worst the symptoms were mild, moderate, in the emergency department the symptoms are unchanged. Modifying factors: The symptoms are alleviated by nothing, the symptoms are aggravated by nothing. Associated signs and symptoms: Pertinent positives: rhinorrhea, Pertinent negatives: chest pain, diarrhea, ear ache, fever, nausea, sore throat, vomiting. The patient has not experienced similar symptoms in the past. The patient has not recently seen a physician. Pt reports cough, congestion, runny nose, bodyaches, chills for 5 days. Exposed to covid just prior to onset of symptoms. 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 - Social history:: Smoking status: Patient reports the use of cigarette tobacco products, smokes one-half pack cigarettes per day, Patient/guardian denies using alcohol. ROS: 19:55 Abdomen/GI: Negative for abdominal pain, nausea, vomiting, diarrhea, and constipation. kb 19:55 Constitutional: Positive for body aches, chills, fatigue, malaise. 19:55 ENT: Positive for rhinorrhea, sinus congestion. 19:55 Respiratory: Positive for cough. 19:55 All other systems are negative. Exam: 19:55 Constitutional: This is a well developed, well nourished patient who is awake, alert, kb and in no acute distress. Head/Face: Normocephalic, atraumatic. ENT: Moist Mucous membranes Cardiovascular: Regular rate and rhythm with a normal S1 and S2. No gallops, murmurs, or rubs. No pulse deficits. Respiratory: Respirations even and unlabored. No increased work of breathing. Talking in full sentences Skin: Warm, dry with normal turgor. Normal color. MS/ Extremity: Pulses equal, no cyanosis. Neurovascular intact. Full, normal range of motion. Neuro: Awake and alert, GCS 15, oriented to person, place, time, and situation. Moves all extremities. Normal gait. Vital Signs: 18:07 BP 107 / 70; Pulse 82; Resp 18; Temp 97.9(TE); Pulse Ox 96% on R/A; Weight 49.9 kg; ld1 Height 5 ft. 6 in. (167.64 cm); Pain 0/10; 18:53 BP 92 / 60; Pulse 78; Resp 16; Temp 98.5(O); Pulse Ox 98% on R/A; eh3 18:07 Body Mass Index 17.75 (49.90 kg, 167.64 cm) ld1 MDM: 18:12 Patient medically screened. kb 19:55 Data reviewed: vital signs, nurses notes. Data interpreted: Pulse oximetry: on room air kb is 98 %. Interpretation: normal. Counseling: I had a detailed discussion with the patient and/or guardian regarding: the historical points, exam findings, and any diagnostic results supporting the discharge/admit diagnosis, lab results, the need for outpatient follow up, a family practitioner, to return to the emergency department if symptoms worsen or persist or if there are any questions or concerns that arise at home. 04/30 18:35 Order name: Flu; Complete Time: 19:20 kb 04/30 18:35 Order name: COVID-19 SARS RT PCR (Document "Date of Onset" if Symptomatic); Complete kb Time: 19:30 Administered Medications: No medications were administered Disposition Summary: 04/30/22 19:33 Discharge Ordered Location: Home kb Condition: Stable kb Diagnosis - Acute upper respiratory infection, unspecified kb Followup: kb - With: Emergency Department - When: As needed - Reason: Worsening of condition Followup: kb - With: Private Physician - When: 2 - 3 days - Reason: Recheck today's complaints, Continuance of care, Re-evaluation by your physician Discharge Instructions: - Discharge Summary Sheet kb - Upper Respiratory Infection, Adult, [id number] kb - Viral Respiratory Infection, [id number] kb - Form - Return To Work eh3 - Form - Excuse from Work, School, or Physical Activity eh3 Forms: - Work release form kb - Medication Reconciliation Form kb - Thank You Letter kb - Antibiotic Education kb - Prescription Opioid Use kb Signatures: Dispatcher [employer] Yvonne Bell, Vee Leo, RN RN ld1
[2022-04-30 20:31] VITALS: BP 92/60; TEMP 98.5; O2SAT 98
== END 2022-04-30 19:46 | disposition home or self-care (01) ==
LOC: ER 17:45
DX: J06.9 Acute upper respiratory infection, unspecified (principal); Z20.822 Contact with and (suspected) exposure to COVID-19; F17.210 Nicotine dependence, cigarettes, uncomplicated
CPT/HCPCS: 87804; 99281; U0003

== ENCOUNTER 2022-05-04 11:02 | Emergency (ER) | payer SELFPAY ==
[2022-05-04 13:27] LABS: SARS-CoV-2 Antigen Rapid Res Positive (Negative)
--- NOTE | 2022-05-04 13:34 | ER ---
Nurse's Notes [facility] Name: Fiorella Painting Age: 51 yrs Sex: Female : 1970 Arrival Date: 05/04/2022 Time: 11:04 Bed 17 Private MD: Diagnosis: SARS-associated coronavirus as the cause of diseases classified elsewhere Presentation: 05/04 11:17 Chief complaint: Patient states: my back is hurting, my ankles and knees hurt, iw nauseated, fever, not eating X 3-4 days , her daughter had COVID last week. Coronavirus screen: Client presents with at least one sign or symptom that may indicate coronavirus-19. Ebola Screen: Patient negative for fever greater than or equal to 101.5 degrees Fahrenheit, and additional compatible Ebola Virus Disease symptoms Patient denies exposure to infectious person. Patient denies travel to an Ebola-affected area in the 21 days before illness onset. No symptoms or risks identified at this time. Initial Sepsis Screen: Does the patient meet any 2 criteria? No. Patient's initial sepsis screen is negative. Does the patient have a suspected source of infection? No. Patient's initial sepsis screen is negative. Risk Assessment: Do you want to hurt yourself or someone else? Patient reports no desire to harm self or others. Onset of symptoms was May 02, 2022. 11:17 Method Of Arrival: Ambulatory iw 11:17 Acuity: RAJ 3 iw Historical: - Allergies: 11:19 Oxycodone HCl; iw - Home Meds: 11:19 Paxil Oral [Active]; Glimepiride Oral [Active]; iw - PMHx: 11:19 Depression; Diabetes - NIDDM; Hypercholesterolemia; iw - PSHx: 11:19 None; iw - Immunization history:: Client reports receiving the 2nd dose of the Covid vaccine. - Social history:: Smoking status: Patient reports the use of cigarette tobacco products, smokes one-half pack cigarettes per day. Screenin:56 Abuse screen: Denies threats or abuse. Denies injuries from another. Nutritional ko1 screening: No deficits noted. Tuberculosis screening: No symptoms or risk factors identified. Fall Risk None identified. Assessment: 11:56 General: Appears in no apparent distress. uncomfortable, Behavior is calm, cooperative, ko1 appropriate for age. Pain: Complains of pain in generalized. Neuro: Level of Consciousness is awake, alert, obeys commands, Oriented to person, place, time, situation, Appropriate for age. Cardiovascular: No deficits noted. Respiratory: Reports cough that is productive. GI: No deficits noted. : No deficits noted. EENT: No deficits noted. Derm: No deficits noted. Musculoskeletal: No deficits noted. 13:00 Reassessment: No changes from previously documented assessment. Patient and/or family em6 updated on plan of care and expected duration. Pain level reassessed. Patient is alert, oriented x 3, equal unlabored respirations, skin warm/dry/pink. Vital Signs: 11:17 BP 108 / 79; Pulse 86; Resp 18; Temp 97.6; Pulse Ox 98% on R/A; iw 12:47 BP 115 / 75; Pulse 83; Resp 16; Pulse Ox 100% on R/A; em6 13:53 BP 116 / 72; Pulse 78; Resp 16; Pulse Ox 100% ; em6 ED Course: 11:04 Patient arrived in ED. am2 11:05 An Kearns FNP-C is PHCP. snw 11:05 Isac Randolph MD is Attending Physician. snw 11:06 An Kearns FNP-C is PHCP. snw 11:19 Triage completed. iw 11:20 Arm band placed on. iw 11:33 Anum Chung, RN is Primary Nurse. ko1 11:39 Strep Sent. ko1 11:39 Flu Sent. ko1 11:39 SARS RAPID Sent. ko1 11:56 Patient has correct armband on for positive identification. Bed in low position. Call ko1 light in reach. Side rails up X 1. 11:56 No provider procedures requiring assistance completed. ko1 14:02 Patient did not have IV access during this emergency room visit. em6 Administered Medications: 03:45 Drug: Ketorolac 30 mg Route: IM; Site: right deltoid; em6 14:02 Follow up: Response: No adverse reaction em6 03:45 Drug: Pepcid (famotidine) 20 mg Route: PO; em6 14:01 Follow up: Response: No adverse reaction em6 13:45 Drug: ZyrTEC - Cetirizine 10 mg Route: PO; em6 14:02 Follow up: Response: No adverse reaction em6 13:45 Drug: Aspirin Chewable Tablet 324 mg Route: PO; em6 14:01 Follow up: Response: No adverse reaction em6 Medication: 14:02 VIS not applicable for this client. em6 Outcome: 13:33 Discharge ordered by MD. chowdhury 14:02 Discharged to home em6 14:02 Discharged to home ambulatory. 14:02 Condition: stable 14:02 Discharge instructions given to patient, Instructed on discharge instructions, follow up and referral plans. medication usage, Demonstrated understanding of instructions, follow-up care, medications, Prescriptions given X 1. 14:03 Patient left the ED. em6 Signatures: An Kearns, FORENSIC IDENTIFICATION SPECIALIST-C FORENSIC IDENTIFICATION SPECIALIST-Csnw Angelita Prince, RN Deepika Albarado Erika RN RN em6 Anum Chung RN RN ko1
--- NOTE | 2022-05-04 13:34 | EDPHYS ---
Physician Documentation [facility] Name: Fiorella Painting Age: 51 yrs Sex: Female : 1970 Arrival Date: 05/04/2022 Time: 11:04 Bed 17 Private MD: ED Physician Isac Randolph HPI: 05/04 11:32 This 51 yrs old Female presents to ER via Ambulatory with complaints of Fever, snw bodyaches, Back Pain. 11:32 The patient reports fever, that was measured at 101 degrees Fahrenheit. Onset: The snw symptoms/episode began/occurred gradually, 6 day(s) ago, and became persistent. Associated signs and symptoms: Pertinent positives: chills, cough, decreased appetite, sinus congestion. Severity of symptoms: At their worst the symptoms were moderate. The patient has not experienced similar symptoms in the past, but family has similar symptoms, daughter, dx with Covid last week. The patient has not recently seen a physician. Historical: - Allergies: 11:19 Oxycodone HCl; iw - Home Meds: 11:19 Paxil Oral [Active]; Glimepiride Oral [Active]; iw - PMHx: 11:19 Depression; Diabetes - NIDDM; Hypercholesterolemia; iw - PSHx: 11:19 None; iw - Immunization history:: Client reports receiving the 2nd dose of the Covid vaccine. - Social history:: Smoking status: Patient reports the use of cigarette tobacco products, smokes one-half pack cigarettes per day. ROS: 11:31 Eyes: Negative for injury, pain, redness, and discharge, ENT: Negative for injury, snw pain, and discharge, Neck: Negative for injury, pain, and swelling, Cardiovascular: Negative for chest pain, palpitations, and edema, Respiratory: Negative for shortness of breath, cough, wheezing, and pleuritic chest pain, Abdomen/GI: Negative for abdominal pain, nausea, vomiting, diarrhea, and constipation. 11:31 : Negative for injury, bleeding, discharge, and swelling, MS/Extremity: Negative for injury and deformity, Skin: Negative for injury, rash, and discoloration, Neuro: Negative for headache, weakness, numbness, tingling, and seizure. 11:31 Constitutional: Positive for body aches, chills, fever, malaise, poor PO intake. 11:31 Back: Positive for pain at rest. Exam: 11:31 Constitutional: This is a well developed, well nourished patient who is awake, alert, snw and in no acute distress. Head/Face: Normocephalic, atraumatic. Eyes: Pupils equal round and reactive to light, extra-ocular motions intact. Lids and lashes normal. Conjunctiva and sclera are non-icteric and not injected. Cornea within normal limits. Periorbital areas with no swelling, redness, or edema. ENT: Nares patent. No nasal discharge, no septal abnormalities noted. Tympanic membranes are normal and external auditory canals are clear. Oropharynx with no redness, swelling, or masses, exudates, or evidence of obstruction, uvula midline. Mucous membranes moist. Neck: Trachea midline, no thyromegaly or masses palpated, and no cervical lymphadenopathy. Supple, full range of motion without nuchal rigidity, or vertebral point tenderness. No Meningismus. Chest/axilla: Normal chest wall appearance and motion. Nontender with no deformity. No lesions are appreciated. Cardiovascular: Regular rate and rhythm with a normal S1 and S2. No gallops, murmurs, or rubs. Normal PMI, no JVD. No pulse deficits. Respiratory: Lungs have equal breath sounds bilaterally, clear to auscultation and percussion. No rales, rhonchi or wheezes noted. No increased work of breathing, no retractions or nasal flaring. Abdomen/GI: Soft, non-tender, with normal bowel sounds. No distension or tympany. No guarding or rebound. No evidence of tenderness throughout. Back: No spinal tenderness. No costovertebral tenderness. Full range of motion. 11:31 MS/ Extremity: Pulses equal, no cyanosis. Neurovascular intact. Full, normal range of motion. Neuro: Awake and alert, GCS 15, oriented to person, place, time, and situation. Cranial nerves II-XII grossly intact. Motor strength 5/5 in all extremities. Sensory grossly intact. Cerebellar exam normal. Normal gait. Psych: Awake, alert, with orientation to person, place and time. Behavior, mood, and affect are within normal limits. 11:31 Skin: Appearance: normal except for affected area, Moisture: dry. Vital Signs: 11:17 BP 108 / 79; Pulse 86; Resp 18; Temp 97.6; Pulse Ox 98% on R/A; iw 12:47 BP 115 / 75; Pulse 83; Resp 16; Pulse Ox 100% on R/A; em6 13:53 BP 116 / 72; Pulse 78; Resp 16; Pulse Ox 100% ; em6 MDM: 11:06 Patient medically screened. snw 13:45 Data reviewed: vital signs, nurses notes. Data interpreted: Pulse oximetry: on room air snw is 100 %. Interpretation: normal. Counseling: I had a detailed discussion with the patient and/or guardian regarding: the historical points, exam findings, and any diagnostic results supporting the discharge/admit diagnosis, lab results, the need for outpatient follow up, to return to the emergency department if symptoms worsen or persist or if there are any questions or concerns that arise at home. Special discussion: Based on the history and exam findings, there is no indication for further emergent testing or inpatient evaluation. I discussed with the patient/guardian the need to see the primary care provider for further evaluation of the symptoms. 05/04 11:26 Order name: SARS RAPID; Complete Time: 13:32 snw 05/04 11:26 Order name: Flu; Complete Time: 13:20 snw 05/04 11:26 Order name: Strep; Complete Time: 12:58 snw 05/04 13:03 Order name: Throat Culture EDMS Administered Medications: 03:45 Drug: Ketorolac 30 mg Route: IM; Site: right deltoid; em6 14:02 Follow up: Response: No adverse reaction em6 03:45 Drug: Pepcid (famotidine) 20 mg Route: PO; em6 14:01 Follow up: Response: No adverse reaction em6 13:45 Drug: ZyrTEC - Cetirizine 10 mg Route: PO; em6 14:02 Follow up: Response: No adverse reaction em6 13:45 Drug: Aspirin Chewable Tablet 324 mg Route: PO; em6 14:01 Follow up: Response: No adverse reaction em6 Disposition: 15:43 Co-signature as Attending Physician, Isac Randolph MD I agree with the assessment and kdr plan of care. Disposition Summary: 05/04/22 13:33 Discharge Ordered Location: Home snw Condition: Stable snw Diagnosis - SARS-associated coronavirus as the cause of diseases classified elsewhere snw Followup: snw - With: Emergency Department - When: As needed - Reason: Worsening of condition Followup: snw - With: Private Physician - When: 5 - 6 days - Reason: Recheck today's complaints, Continuance of care, Re-evaluation by your physician Discharge Instructions: - Discharge Summary Sheet snw - Aspirin and Your Heart snw - COVID-19 snw - 10 Things You Can Do to Manage Your COVID-19 Symptoms at Home - [facility] snw - COVID-19: Quarantine vs. Isolation - [facility] snw Forms: - Medication Reconciliation Form snw - Thank You Letter snw - Antibiotic Education snw - Prescription Opioid Use snw - Work release form em6 Prescriptions: - Prednisone 20 mg Oral Tablet - take 2 tablets by ORAL route once daily for 5 days; 10 tablet; Refills: 0, snw Product Selection Permitted Signatures: Dispatcher [employer] EDMS Isac Randolph MD MD kdr Waters, Shelly, AGRICULTURAL RESEARCH ENGINEER-C AGRICULTURAL RESEARCH ENGINEER-Csnw Angelita Prince RN RN iw Kenna Daniel RN RN em6
[2022-05-04] MEDS ORDERED: FAMOTIDINE 20 MG TAB ONE (13:46)
[2022-05-04] MEDS ORDERED: CETIRIZINE HCL 5 MG TABLET ONE (13:46)
[2022-05-04] MEDS ORDERED: ASPIRIN 81 MG CHEWABLE TABLET ONE (13:46)
[2022-05-04] MEDS ORDERED: KETOROLAC 30 MG/ML INJ ONE (13:46)
[2022-05-04 14:07] VITALS: TEMP 97.6
[2022-05-04 14:08] VITALS: O2SAT 100
[2022-05-04 14:09] VITALS: BP 116/72
== END 2022-05-04 14:03 | disposition home or self-care (01) ==
LOC: ER 11:02
DX: U07.1 COVID-19 (principal); F17.210 Nicotine dependence, cigarettes, uncomplicated; Z88.5 Allergy status to narcotic agent
CPT/HCPCS: 36415; 87070; 87081; 87804; 87811; 96372; 99283

== ENCOUNTER 2022-06-19 23:35 | Emergency (ER) | payer OTHER ==
[2022-06-19] MEDS ORDERED: IBUPROFEN 200 MG TAB PO ONE (23:58)
[2022-06-19] MEDS ORDERED: IBUPROFEN 400 MG TAB ONE (23:58)
--- NOTE | 2022-06-20 00:39 | EDPHYS ---
Physician Documentation [facility] Name: Fiorella Painting Age: 51 yrs Sex: Female : 1970 Arrival Date: 06/19/2022 Time: 23:38 Bed 17 Private MD: UZIEL Physician Jorge Jenkins HPI: 06/19 23:58 This 51 yrs old Female presents to ER via Ambulatory with complaints of Hand jennifer Injury, Hand Pain. 23:58 The patient or guardian reports decreased range of motion, pain. The complaints affect jennifer the right hand diffusely. Context: The problem was sustained at work, resulted from a direct blow, by an appliance. Onset: The symptoms/episode began/occurred just prior to arrival. Modifying factors: The symptoms are alleviated by elevation, the symptoms are aggravated by movement. Associated signs and symptoms: The patient has no apparent associated signs or symptoms. Severity of symptoms: At their worst the symptoms were mild, in the emergency department the symptoms are unchanged. The patient has not experienced similar symptoms in the past. 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 - Social history:: Smoking status: Patient reports the use of cigarette tobacco products, smokes one-half pack cigarettes per day. - Family history:: not pertinent. ROS: 23:58 Constitutional: Negative for fever, chills, and weight loss, Eyes: Negative for injury, jennifer pain, redness, and discharge, ENT: Negative for injury, pain, and discharge, Neck: Negative for injury, pain, and swelling, Cardiovascular: Negative for chest pain, palpitations, and edema, Respiratory: Negative for shortness of breath, cough, wheezing, and pleuritic chest pain, Abdomen/GI: Negative for abdominal pain, nausea, vomiting, diarrhea, and constipation, Back: Negative for injury and pain, : Negative for injury, bleeding, discharge, and swelling, Skin: Negative for injury, rash, and discoloration, Neuro: Negative for headache, weakness, numbness, tingling, and seizure, Psych: Negative for depression, anxiety, suicide ideation, homicidal ideation, and hallucinations, Allergy/Immunology: Negative for hives, rash, and allergies, Endocrine: Negative for neck swelling, polydipsia, polyuria, polyphagia, and marked weight changes, Hematologic/Lymphatic: Negative for swollen nodes, abnormal bleeding, and unusual bruising. 23:58 MS/extremity: Positive for decreased range of motion, pain, tenderness, of the right hand. Exam: 23:58 Constitutional: This is a well developed, well nourished patient who is awake, alert, jennifer and in no acute distress. Head/Face: Normocephalic, atraumatic. Eyes: Pupils equal round and reactive to light, extra-ocular motions intact. Lids and lashes normal. Conjunctiva and sclera are non-icteric and not injected. Cornea within normal limits. Periorbital areas with no swelling, redness, or edema. ENT: Nares patent. No nasal discharge, no septal abnormalities noted. Tympanic membranes are normal and external auditory canals are clear. Oropharynx with no redness, swelling, or masses, exudates, or evidence of obstruction, uvula midline. Mucous membranes moist. Neck: Trachea midline, no thyromegaly or masses palpated, and no cervical lymphadenopathy. Supple, full range of motion without nuchal rigidity, or vertebral point tenderness. No Meningismus. Chest/axilla: Normal chest wall appearance and motion. Nontender with no deformity. No lesions are appreciated. Cardiovascular: Regular rate and rhythm with a normal S1 and S2. No gallops, murmurs, or rubs. Normal PMI, no JVD. No pulse deficits. Respiratory: Lungs have equal breath sounds bilaterally, clear to auscultation and percussion. No rales, rhonchi or wheezes noted. No increased work of breathing, no retractions or nasal flaring. Abdomen/GI: Soft, non-tender, with normal bowel sounds. No distension or tympany. No guarding or rebound. No evidence of tenderness throughout. Back: No spinal tenderness. No costovertebral tenderness. Full range of motion. Skin: Warm, dry with normal turgor. Normal color with no rashes, no lesions, and no evidence of cellulitis. Neuro: Awake and alert, GCS 15, oriented to person, place, time, and situation. Cranial nerves II-XII grossly intact. Motor strength 5/5 in all extremities. Sensory grossly intact. Cerebellar exam normal. Normal gait. Psych: Awake, alert, with orientation to person, place and time. Behavior, mood, and affect are within normal limits. 23:58 Musculoskeletal/extremity: ROM: limited active range of motion due to pain, in the right hand, Circulation is intact in all extremities. Sensation intact. Compartment Syndrome exam of affected extremity: is normal. Vital Signs: 23:42 BP 124 / 76; Pulse 81; Resp 18; Temp 98.2; Pulse Ox 97% ; Weight 49.44 kg; Height 5 ft. kb3 6 in. (167.64 cm); Pain 8/10; 23:42 Body Mass Index 17.59 (49.44 kg, 167.64 cm) kb3 MDM: 23:47 Patient medically screened. jennifer 06/20 00:03 Differential diagnosis: closed fracture, contusion, abrasion, tendonitis. Data jennifer reviewed: vital signs, nurses notes, radiologic studies, plain films. Data interpreted: front desk monitor: not applicable for this patient encounter. rate is 81 beats/min, rhythm is regular, Pulse oximetry: on room air is 97 %. Test interpretation: by ED physician or midlevel provider: plain radiologic studies. Counseling: I had a detailed discussion with the patient and/or guardian regarding: the historical points, exam findings, and any diagnostic results supporting the discharge/admit diagnosis, radiology results, the need for outpatient follow up, for definitive care, a family practitioner, a orthopedic surgeon. 06/19 23:48 Order name: Hand Right 3 View XRAY [facility] 06/19 23:48 Order name: Ice pack; Complete Time: 00:07 jennifer Administered Medications: 00:07 Drug: Motrin (ibuprofen) 600 mg Route: PO; kd3 00:52 Follow up: Response: No adverse reaction; Pain is decreased kd3 Disposition Summary: 06/20/22 00:39 Discharge Ordered Location: Home jennifer Problem: new jennifer Symptoms: have improved jennifer Condition: Stable jennifer Diagnosis - Contusion of hand jennifer Followup: jennifer - With: Private Physician - When: 2 - 3 days - Reason: Recheck today's complaints, Continuance of care, Re-evaluation by your physician Followup: jennifer - With: - When: 2 - 3 days - Reason: Recheck today's complaints, Re-evaluation by your physician Discharge Instructions: - Discharge Summary Sheet jennifer - Contusion jennifer - Hand Contusion jennifer - Hand Contusion, [id number] jennifer - Contusion, [id number] jennifer Forms: - Medication Reconciliation Form jennifer - Thank You Letter jennifer - Antibiotic Education jennifer - Prescription Opioid Use [facility] Prescriptions: - Motrin IB 200 mg Oral Tablet - take 2 tablet by ORAL route every 6 hours As needed as needed with food; 30 jennifer tablet; Refills: 0, Product Selection Permitted Signatures: Dispatcher [employer] EDJorge Milligan MD MD cha Doucette, Kyli, RN RN kd3 Kristine Arias RN RN kb3
--- NOTE | 2022-06-20 00:39 | ER ---
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 Pt c/o right hand pain and pain in digits #3, 4, 5. No wounds, no swelling, no redness noted. Coronavirus screen: Vaccine status: Patient reports receiving the 2nd dose of the covid vaccine. Client denies travel out of the [place] in the last 14 days. Ebola Screen: Patient negative for fever greater than or equal to 101.5 degrees Fahrenheit, and additional compatible Ebola Virus Disease symptoms Patient denies exposure to infectious person. Patient denies travel to an Ebola-affected area in the 21 days before illness onset. No symptoms or risks identified at this time. Initial Sepsis Screen: Does the patient meet any 2 criteria? No. Patient's initial sepsis screen is negative. Does the patient have a suspected source of infection? No. Patient's initial sepsis screen is negative. Risk Assessment: Do you want to hurt yourself or someone else? Patient reports no desire to harm self or others. Onset of symptoms was June 19, 2022 at 21:45. 23:42 Method Of Arrival: Ambulatory kb3 23:42 Acuity: RAJ 4 kb3 Triage Assessment: 23:44 General: Appears in no apparent distress. Behavior is calm, cooperative. Pain: kb3 Complains of pain in dorsal aspect of middle phalanx of right middle finger, dorsal aspect of proximal phalanx of right middle finger, dorsal aspect of middle phalanx of right ring finger, dorsal aspect of proximal phalanx of right ring finger, dorsal aspect of middle phalanx of right little finger, dorsal aspect of proximal phalanx of right little finger and dorsum of right hand Pain does not radiate. Pain currently is 9 out of 10 on a pain scale. Quality of pain is described as throbbing. 06/20 00:09 Injury Description: Crush injury sustained to right hand. 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 - Social history:: Smoking status: Patient reports the use of cigarette tobacco products, smokes one-half pack cigarettes per day. - Family history:: not pertinent. Screenin/17 00:08 [facility] ED Fall Risk Assessment (Adult) History of falling in the last 3 months, kd3 including since admission No falls in past 3 months (0 pts) Confusion or Disorientation No (0 pts) Intoxicated or Sedated No (0 pts) Impaired Gait No (0 pts) Mobility Assist Device Used No (0 pt) Altered Elimination No (0 pt) Score/Fall Risk Level 0 - 2 = Low Risk. Humpty Dumpty Scale Fall Assessment Tool (age< 18yrs) Age 13 years and above (1 pt) Gender Female (1 pt) Diagnosis Other diagnosis (1 pt) Cognitive Impairments Oriented to own ability (1 pt) Environmental Factors Patient placed in bed (2 pts) Response to Surgery/Sedation/Anesthesia More than 48 hours/ None (1 pt) Medication Usage Other medications/ None (1 pt) Fall Risk Score/ Level Low Fall Risk: </= 11 points. Abuse screen: Denies threats or abuse. Denies injuries from another. Nutritional screening: No deficits noted. Tuberculosis screening: No symptoms or risk factors identified. Fall Risk No fall in past 12 months (0 pts). No secondary diagnosis (0 pts). IV access (20 points). Ambulatory Aid- None/Bed Rest/Nurse Assist (0 pts). Gait- Normal/Bed Rest/Wheelchair (0 pts) Mental Status- Oriented to own ability (0 pts). Total Zaragoza Fall Scale indicates No Risk (0-24 pts). Assessment: 00:07 General: Appears in no apparent distress. Behavior is calm, cooperative. Pain: kd3 Complains of pain in right hand. Neuro: Level of Consciousness is awake, alert, obeys commands, Oriented to person, place, time, situation. Cardiovascular: Patient's skin is warm and dry. Respiratory: Airway is patent Trachea midline Respiratory effort is even, unlabored, Respiratory pattern is regular, symmetrical. Musculoskeletal: Reports pain in right hand. Vital Signs: 06/19 23:42 BP 124 / 76; Pulse 81; Resp 18; Temp 98.2; Pulse Ox 97% ; Weight 49.44 kg; Height 5 ft. kb3 6 in. (167.64 cm); Pain 8/10; 23:42 Body Mass Index 17.59 (49.44 kg, 167.64 cm) kb3 ED Course: 23:38 Patient arrived in ED. jj6 23:44 Triage completed. kb3 23:44 Arm band placed on right wrist. kb3 23:47 Jorge Jenkins MD is Attending Physician. [facility] 23:53 Nohemi Jorge, RN is Primary Nurse. kd3 06/20 00:09 Patient has correct armband on for positive identification. kd3 00:39 Joel Noel MD is Referral Physician. [facility] 00:52 No provider procedures requiring assistance completed. Patient did not have IV access kd3 during this emergency room visit. 00:53 Hand Right 3 View XRAY In Process Unspecified. EDMS Administered Medications: 00:07 Drug: Motrin (ibuprofen) 600 mg Route: PO; kd3 00:52 Follow up: Response: No adverse reaction; Pain is decreased kd3 Medication: 00:07 VIS not applicable for this client. kd3 Outcome: 00:39 Discharge ordered by . [facility] 00:52 Discharged to home ambulatory. kd3 00:52 Condition: stable 00:52 Discharge instructions given to patient, Instructed on discharge instructions, follow up and referral plans. medication usage, Demonstrated understanding of instructions, follow-up care, medications, Prescriptions given X 1. 00:52 Patient left the ED. kd3 Signatures: Dispatcher [employer] EDMS Jorge Jenkins MD MD cha Jeffries, Jennifer jj6 Nohemi Jorge, RN RN kd3 Kristine Arias, RN RN kb3
[2022-06-20 01:10] VITALS: BP 124/76; TEMP 98.2; O2SAT 97
--- NOTE | 2022-06-20 23:05 | RAD REPORT ---
EXAM DESCRIPTION: RAD - Hand Right 3 View - 06/20/2022 12:51 am CLINICAL HISTORY: PAIN COMPARISON: None. FINDINGS: 3 views of the right hand. No acute fracture or dislocation. Normal osseous mineralization . Mild degenerative change of the hand. IMPRESSION: 1. No acute fracture or dislocation. 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 The interpreting radiologist is fully responsible for the content of the report.
== END 2022-06-20 00:52 | disposition home or self-care (01) ==
LOC: ER 23:35
DX: S60.221A Contusion of right hand, initial encounter (principal); W22.8XXA Striking against or struck by other objects, initial encounter; Y92.89 Other specified places as the place of occurrence of the external cause; Y99.8 Other external cause status; Z88.5 Allergy status to narcotic agent; F17.210 Nicotine dependence, cigarettes, uncomplicated; F32.A Depression, unspecified
CPT/HCPCS: 99283

== ENCOUNTER → 2023-08-24 | Emergency (ER) | payer OTHER ==
[~2023-08-24] MED LIST: MORPHINE 4 MG/ML SYR ONE; NA CHLORIDE 0.9% 1,000 ML ONE; ONDANSETRON 4 MG/2 ML VIAL ONE
--- OUTSIDE RECORDS SUMMARY | 2023-08-24 21:49 | XMS REPORT | Continuity of Care Document ---
Author Name Unknown Address [address] [place] [address] [facility] Address [address] [place] [address] Care Team Providers Care Contracts Advisor Name Role Phone Unavailable Unavailable Unavailable Encounters Start Date/Time End Date/Time Encounter Type Admission Type Attending Clinicians Care Facility Care Department Encounter ID Source 2023-06-09 13:40:33 2023-06-09 13:40:33 Outpatient [facility] SFA [id number] Piter Campos 2023-02-23 16:22:48 2023-02-23 16:22:48 Outpatient [facility] SFA [id number] Piter Campos 2023-01-13 16:25:33 2023-01-13 16:25:33 Outpatient SFA SFA [id number] Piter Campos 2023-01-08 14:28:45 2023-01-08 14:28:45 Outpatient SFA SFA [id number] Piter Campos 2023-01-06 08:35:00 2023-01-06 08:35:00 Outpatient SFA SFA [id number] Piter Campos 2022-10-29 08:46:07 2022-10-29 08:46:07 Outpatient SFA SFA [id number] Piter Campos Results Test Description Test Time Test Comments Results Result Co mments Source LIPID [id number] 06:08:20* Test Item Value Reference Range Interpretation Comme nts CHOLESTEROL (test code = 2210) 140 MG/DL <200 TRIGLYCERIDES (test code = 2232) 75 MG/DL <150 HDL CHOLESTEROL (test code = 2220) 53 MG/DL >39 CALC LDL CHOL (test code = 2237) 71 MG/DL <100 NOTE: CALCULATED LDL IS BASED ON HAIR-MIN METHOD WHICHINCLUDES ADJUSTABLE TRIGLYCERIDE:VLDL CHOLESTEROL RATIO.THIS FACTOR VARIES BY MEASURED TRIGLYCERIDE AND NON-HDLCHOLESTEROL CONCENTRATIONS WITH INCREASED CALCULATED LDL SEENIN HIGHER TRIGLYCERIDE OR LOWER NON-HDL SPECIMENS. FOR MOREINFORMATION, SEE CLIENT ANNOUNCEMENT AT [email or web address] RATIO LDL/HDL (test code = 2238) 1.34 RATIO <3.22 UNLESS OTHERW ISE INDICATED, ALL TESTING PERFORMED AT [facility] [address] [place] [address] INTERNATIONAL LOGISTICS ANALYST: AL GARCIA M.D. CLIA NUMBER [id number] [facility] [place]. [id number] HEMOGLOBIN [id number] 05:34:34* Test Item Value Reference Range Interpretation Comme nts HEMOGLOBIN A1c (test code = 82717) 8.4 % 4.2-5.6 H [employer] GUIDELINES FOR HGB A1C: PREDIABETES/INCREASED RISK . . . . . . . 5.7-6.4% DIAGNOSIS OF DIABETES . . . . . . . . . >=6.5% WITH CONFIRMATION OR APPROPRIATE SYMPTOMS NOTE: ASSAY MAY BE AFFECTED BY HEMOGLOBINOPATHIES (SICKLE CELL ANEMIA, S-C DISEASE, OTHERS) OR ARTIFICIALLY LOWERED BY DECREASED RED CELL SURVIVAL (HEMOLYTIC ANEMIAS, BLOOD LOSS, ETC.). CONSIDER ALTERNATE TESTING OR LABORATORY CONSULTATION. COMPREHENSIVE METABOLIC [id number] 19:17:31* Test Item Value Reference Range Interpretation Comme nts GLUCOSE (test code = 2217) 257 MG/DL 70-99 H BUN (test code = 8) 16 MG/DL 6-20 CREATININE (test code = 2214) 0.83 MG/DL 0.60-1.30 eGFR (2020 CKD-EPI) (test code = 06166) 84 ML/MIN/1.73 >60 CALC BUN/CREAT (test code = 2235) 19 RATIO 6-28 SODIUM (test code = 2230) 142 MEQ/L 133-146 POTASSIUM (test code = 2228) 4.6 MEQ/L 3.5-5.4 CHLORIDE (test code = 2215) 100 MEQ/L 95-107 CARBON DIOXIDE (test code = 6) 25 MEQ/L 19-31 CALCIUM (test code = 2209) 10.4 MG/DL 8.5-10.5 PROTEIN, TOTAL (test code = 2229) 7.4 G/DL 6.1-8.3 ALBUMIN (test code = 2201) 4.7 G/DL 3.5-5.2 CALC GLOBULIN (test code = 2240) 2.7 G/DL 1.9-3.7 CALC A/G RATIO (test code = 2234) 1.7 RATIO 1.0-2.6 BILIRUBIN, TOTAL (test code = 2207) 0.5 MG/DL See_Comment [Automated me ssage] The system which generated this result transmitted reference range: <=1.2. The reference range was not used to interpret this result as normal/abnormal. ALKALINE PHOSPHATASE (test code = 2204) 120 U/L 40-133 AST (test code = 2218) 16 U/L 9-40 ALT (test code = 2219) 16 U/L 5-40 LIPID [id number] 19:17:31* Test Item Value Reference Range Interpretation Comme nts CHOLESTEROL (test code = 2210) 228 MG/DL <200 H TRIGLYCERIDES (test code = 2232) 81 MG/DL <150 HDL CHOLESTEROL (test code = 2220) 53 MG/DL >39 CALC LDL CHOL (test code = 2237) 157 MG/DL <100 H NOTE: CALCULATED LDL IS BASED ON HAIR-MIN METHOD WHICHINCLUDES ADJUSTABLE TRIGLYCERIDE:VLDL CHOLESTEROL RATIO.THIS FACTOR VARIES BY MEASURED TRIGLYCERIDE AND NON-HDLCHOLESTEROL CONCENTRATIONS WITH INCREASED CALCULATED LDL SEENIN HIGHER TRIGLYCERIDE OR LOWER NON-HDL SPECIMENS. FOR MOREINFORMATION, SEE CLIENT ANNOUNCEMENT AT [email or web address] RATIO LDL/HDL (test code = 2238) 2.96 RATIO <3.22 [facility] has i mportant pathology staff changes effective 09/02/2022. New pathology staff will provide uninterrupted, excellent patient care and clinical consultation. See URL: [email or web address]. UNLESS OTHERWISE INDICATED, ALL TESTING PERFORMED AT [facility] [address] [place] [id number] INTERNATIONAL LOGISTICS ANALYST: AL GARCIA M.D. CLIA NUMBER [id number] [place] [id number] ALBUMIN/CREATININE RATIO, URINE, [id number] 06:04:56* Test Item Value Reference Range Interpretation Comme nts CREATININE, URINE, CONC. (test code = 2072) 353.2 MG/DL NOT ESTAB ALBUMIN, URINE, RANDOM (test code = 46827) 2.5 MG/DL NOT ESTAB CALC ALBUMIN/CREAT, RND (test code = 68495) 7 MG/G <30 Note: Albumin/Creatinine ratio reference interval reflects ADA and NKF guidelines. HEMOGLOBIN [id number] 04:25:31* Test Item Value Reference Range Interpretation Comme nts HEMOGLOBIN A1c (test code = 84525) 10.2 % 4.2-5.6 H [employer] GUIDELINES FOR HGB A1C: PREDIABETES/INCREASED RISK . . . . . . . 5.7-6.4% DIAGNOSIS OF DIABETES . . . . . . . . . >=6.5% WITH CONFIRMATION OR APPROPRIATE SYMPTOMS NOTE: ASSAY MAY BE AFFECTED BY HEMOGLOBINOPATHIES (SICKLE CELL ANEMIA, S-C DISEASE, OTHERS) OR ARTIFICIALLY LOWERED BY DECREASED RED CELL SURVIVAL (HEMOLYTIC ANEMIAS, BLOOD LOSS, ETC.). CONSIDER ALTERNATE TESTING OR LABORATORY CONSULTATION. LIPID [id number] 03:35:41* Test Item Value Reference Range Interpretation Comme nts CHOLESTEROL (test code = 2210) 226 MG/DL <200 H TRIGLYCERIDES (test code = 2232) 98 MG/DL <150 HDL CHOLESTEROL (test code = 2220) 53 MG/DL >39 CALC LDL CHOL (test code = 2237) 152 MG/DL <100 H NOTE: CALCULATED LDL IS BASED ON HAIR-MIN METHOD WHICHINCLUDES ADJUSTABLE TRIGLYCERIDE:VLDL CHOLESTEROL RATIO.THIS FACTOR VARIES BY MEASURED TRIGLYCERIDE AND NON-HDLCHOLESTEROL CONCENTRATIONS WITH INCREASED CALCULATED LDL SEENIN HIGHER TRIGLYCERIDE OR LOWER NON-HDL SPECIMENS. FOR MOREINFORMATION, SEE CLIENT ANNOUNCEMENT AT [email or web address] [email or web address] RATIO LDL/HDL (test code = 2238) 2.87 RATIO <3.22 COMPREHENSIVE METABOLIC [id number] 03:35:41* Test Item Value Reference Range Interpretation Comme nts GLUCOSE (test code = 2217) 266 MG/DL 70-99 H BUN (test code = 2208) 21 MG/DL 6-20 H CREATININE (test code = 2214) 0.71 MG/DL 0.60-1.30 eGFR (2020 CKD-EPI) (test code = ) 102 ML/MIN/1.73 >60 CALC BUN/CREAT (test code = 2234) 30 RATIO 6-28 H SODIUM (test code = 2230) 139 MEQ/L 133-146 POTASSIUM (test code = 2227) 4.3 MEQ/L 3.5-5.4 CHLORIDE (test code = 2214) 100 MEQ/L 95-107 CARBON DIOXIDE (test code = 2205) 26 MEQ/L 19-31 CALCIUM (test code = 2208) 9.7 MG/DL 8.5-10.5 PROTEIN, TOTAL (test code = 2228) 7.2 G/DL 6.1-8.3 ALBUMIN (test code = 2200) 4.6 G/DL 3.5-5.2 CALC GLOBULIN (test code = 2239) 2.6 G/DL 1.9-3.7 CALC A/G RATIO (test code = 2233) 1.8 RATIO 1.0-2.6 BILIRUBIN, TOTAL (test code = 2206) 0.4 MG/DL See_Comment [Automated me ssage] The system which generated this result transmitted reference range: <=1.2. The reference range was not used to interpret this result as normal/abnormal. ALKALINE PHOSPHATASE (test code = 2203) 96 U/L 40-133 AST (test code = 2217) 18 U/L 9-40 ALT (test code = 2218) 22 U/L 5-40 UNLESS OTHERWISE INDICATED, ALL [facility]ING PER[facility]MED [facility] [address] [place] [address] INTERNATIONAL LOGISTICS ANALYST: WATSON CLOUD M.D. CLIA NUMBER [id number] [facility] [place]. [id number] HEMOGLOBIN [id number] 03:19:13* Test Item Value Reference Range Interpretation Comme nts HEMOGLOBIN A1c (test code = 02634) 11.2 % 4.2-5.6 H [employer]ATION GUIDELINES FOR HGB A1C: PREDIABETES/INCREASED RISK . . . . . . . 5.7-6.4% DIAGNOSIS OF DIABETES . . . . . . . . . >=6.5% WITH CONFIRMATION OR APPROPRIATE SYMPTOMS NOTE: ASSAY MAY BE AFFECTED BY HEMOGLOBINOPATHIES (SICKLE CELL ANEMIA, S-C DISEASE, OTHERS) OR ARTIFICIALLY LOWERED BY DECREASED RED CELL SURVIVAL (HEMOLYTIC ANEMIAS, BLOOD LOSS, ETC.). CONSIDER ALTERNATE TESTING OR LABORATORY CONSULTATION.
[2023-08-24 23:02] LABS: Hematocrit 42.2 % (36.0-45.0); Lymphocytes % 14.9 % (15.3-44.8); MCV 93.1 fL (80-100); MPV 10.8 fL (7.6-11.3); Platelets 149 thou/uL (152-406); RBC Red Blood Cell Count 4.53 M/uL (3.86-4.86)
[2023-08-24 23:07] LABS: Protime INR 1.07
[2023-08-24 23:13] LABS: ALT/SGPT 32 U/L (13-56); AST/SGOT 21 U/L (15-37); Albumin 3.6 g/dL (3.4-5.0); Alkaline Phosphatase 98 U/L (45-117); BUN Blood Urea Nitrogen 26 mg/dL (7-18); Bicarbonate 29 mEq/L (21-32); Bilirubin Direct 0.1 mg/dL (0-0.2); Bilirubin Indirect, Calculated 0.3 mg/dL (0.2-0.8); Bilirubin Total 0.4 mg/dL (0.2-1.0); Glomerular Filtration Rate 92 ml/min (=/>90); Glucose Level 218 mg/dL (74-106); Magnesium 1.7 mg/dL (1.6-2.4); Potassium 4.2 mEq/L (3.5-5.1); Protein, Total 7.3 g/dL (6.4-8.2); Sodium Level 136 mEq/L (136-145)
[2023-08-24 23:22] LABS: Troponin High Sensitivity < 3.0 pg/mL (<58.9)
--- NOTE | 2023-08-25 00:03 | EDPHYS ---
Physician Documentation [facility] Name: Fiorella Painting Age: 52 yrs Sex: Female : 1970 Arrival Date: 08/24/2023 Time: 21:45 Bed 12 Private MD: ED Physician Iker Davies HPI: 08/24 23:32 This 52 yrs old Female presents to ER via Wheelchair with complaints of Fall Injury. kb 23:32 Pt is a 52 year old female who presents for low back pain. States she was smoking kb outside, stood up, got dizzy and had a syncopal episode. Reports back pain started after fall. No incontinence, numbness or tingling. 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 - Social history:: Smoking status: Patient reports the use of cigarette tobacco products, smokes one pack cigarettes per day. Patient uses street drugs, marijuana, Patient/guardian denies using alcohol. ROS: 23:30 Constitutional: Negative for fever, chills, and weight loss, kb 23:30 Back: Positive for pain at rest, pain with movement, of the lumbar area, 23:30 Neuro: Positive for syncope, 23:30 All other systems are negative, Exam: 23:31 Head/Face: Normocephalic, atraumatic. ENT: Moist Mucous membranes Cardiovascular: kb Regular rate Respiratory: Respirations even and unlabored. No increased work of breathing. Talking in full sentences Abdomen/GI: Soft, non-tender. No distention Skin: Warm, dry with normal turgor. Normal color. MS/ Extremity: Pulses equal, no cyanosis. Neurovascular intact. Full, normal range of motion. Neuro: Awake and alert, GCS 15, oriented to person, place, time, and situation. Moves all extremities. Normal gait. 23:31 Constitutional: The patient appears alert, awake, in obvious pain, 23:31 Back: pain, that is moderate, of the lumbar area, ROM is painful, CVA tenderness, is absent, vertebral tenderness, is appreciated at L2 and L3, Vital Signs: 21:56 BP 123 / 95; Pulse 59; Resp 17 S; Temp 98.2(TE); Pulse Ox 100% on R/A; Weight 47.63 kg lg3 (R); Height 5 ft. 6 in. (R); Pain 10/10; 23:07 BP 139 / 90; Pulse 69; Resp 17; Pulse Ox 98% on R/A; Pain 10/10; ap3 08/25 00:30 BP 136 / 88; Pulse 64; Resp 16 S; Temp 98.1(TE); Pulse Ox 99% on R/A; kl 08/24 21:56 Body Mass Index 16.95 (47.63 kg, 167.64 cm) lg3 08/24 21:56 Pain Scale: Adult lg3 23:07 Pain Scale: Adult ap3 MDM: 08/24 21:50 Patient medically screened. kb 08/25 00:01 Differential diagnosis: abrasion, closed head injury, contusion, fracture, sprain, kb strain. Data reviewed: vital signs, nurses notes. Counseling: I had a detailed discussion with the patient and/or guardian regarding the historical points, exam findings, and any diagnostic results supporting the discharge/admit diagnosis, lab results, radiology results, the need for outpatient follow up, a family practitioner, to return to the emergency department if symptoms worsen or persist or if there are any questions or concerns that arise at home. 08/24 22:08 Order name: Basic Metabolic Panel; Complete Time: 23:23 kb 08/24 22:08 Order name: CBC with Diff; Complete Time: 23:27 kb 08/24 22:08 Order name: Hepatic Function; Complete Time: 23:23 kb 08/24 22:08 Order name: Magnesium; Complete Time: 23:23 kb 08/24 22:08 Order name: Protime (+inr); Complete Time: 23:07 kb 08/24 22:08 Order name: Ptt, Activated; Complete Time: 23:07 kb 08/24 22:08 Order name: Troponin High Sensitivity; Complete Time: 23:23 kb 08/24 22:08 Order name: CT Head C Spine kb 08/24 22:08 Order name: CT Lumbar Spine Wo Con kb 08/24 22:08 Order name: EKG; Complete Time: 22:09 kb 08/24 22:08 Order name: Cardiac monitoring; Complete Time: 23:06 kb 08/24 22:08 Order name: EKG - Nurse/Tech; Complete Time: 23:20 kb 08/24 22:08 Order name: IV Saline Lock; Complete Time: 22:55 kb 08/24 22:08 Order name: Labs collected and sent; Complete Time: 22:55 kb 08/24 22:08 Order name: NPO; Complete Time: 22:55 kb 08/24 22:08 Order name: O2 Per Protocol; Complete Time: 22:55 kb 08/24 22:08 Order name: O2 Sat Monitoring; Complete Time: :55 kb Administered Medications: 08/24 23:06 Drug: morphine IVP or IV 4 mg IVP once over 4 mins Route: IVP; Infused Over: 4 mins; ap3 Site: right antecubital; 08/25 01:44 Follow up: Response: No adverse reaction 08/24 23:06 Drug: Ondansetron IVP 4 mg IVP once; over 2 minutes Route: IVP; Site: right antecubital;ap3 08/25 01:43 Follow up: Response: No adverse reaction 08/24 23:06 Drug: NS 0.9% IV 1000 ml IV at 1000 ml once Route: IV; Rate: 1000 ml; Site: right ap3 antecubital; 08/25 01:43 Follow up: IV Status: Completed infusion; IV Intake: 1000ml kl Disposition: 00:32 Co-signature as Attending Physician, Iker Davies MD I agree with the assessment sp4 and plan of care. I reviewed the patient's care provided by the Advanced Practice Provider and agree with the diagnosis and treatment plan. Disposition Summary: 08/25/23 00:02 Discharge Ordered Notes: Location: Home kb Condition: Stable kb Diagnosis - Compression Fracture L1 kb - Syncope kb Followup: kb - With: Emergency Department - When: As needed - Reason: Worsening of condition Followup: kb - With: Private Physician - When: 2 - 3 days - Reason: Recheck today's complaints, Continuance of care, Re-evaluation by your physician Discharge Instructions: - Discharge Summary Sheet kb - Spinal Compression Fracture kb Forms: - Work release form kb - Medication Reconciliation Form kb - Thank You Letter kb - Antibiotic Education kb - Prescription Opioid Use kb - Patient Portal Instructions kb - Leadership Thank You Letter kb Prescriptions: - Ibuprofen 800 mg Oral Tablet - take 1 tablet ORAL route every 8 hours As needed take with food; 30 tablet; kb Refills: 0, Product Selection Permitted - Tramadol 50 mg Oral Tablet - take 1 tablet ORAL route every 8 hours as needed; 12 tablet; Refills: 0, kb Product Selection Permitted Signatures: Dispatcher [employer] EDYvonne Chavarria, Deepika Ayala RN RN ap3 Brianna Delgado RN RN lg3 Iker Davies MD MD sp4 Lizzie Holland RN kl Corrections: (The following items were deleted from the chart) 08/24 23:06 22:08 Orthostatics ordered. joyce ap3
--- NOTE | 2023-08-25 00:03 | ER ---
Nurse's Notes [facility] Name: Fiorella Painting Age: 52 yrs Sex: Female : 1970 Arrival Date: 08/24/2023 Time: 21:45 Bed 12 Private MD: Diagnosis: Compression Fracture L1;Syncope Presentation: 08/24 21:56 Chief complaint: Patient's son or daughter states: stood up, got dizzy, fell backwards lg3 landing on back. complaints of nausea and pain to back. denies hitting head/LOC. Coronavirus screen: Client denies travel out of the [place] in the last 14 days. At this time, the client does not indicate any symptoms associated with coronavirus-19. Ebola Screen: No symptoms or risks identified at this time. Initial Sepsis Screen: Does the patient meet any 2 criteria? No. Patient's initial sepsis screen is negative. Does the patient have a suspected source of infection? No. Patient's initial sepsis screen is negative. Risk Assessment: Do you want to hurt yourself or someone else? Patient reports no desire to harm self or others. Onset of symptoms was August 24, 2023 at 20:00. 21:56 Method Of Arrival: Wheelchair lg3 21:56 Acuity: RAJ 3 lg3 Triage Assessment: 22:00 General: Appears in no apparent distress. uncomfortable, Behavior is cooperative, lg3 fussy. Pain: Complains of pain in back Pain currently is 10 out of 10 on a pain scale. EENT: No deficits noted. No signs and/or symptoms were reported regarding the EENT system. Neuro: No deficits noted. Rocha Agitation-Sedation Scale (RASS): +1 Restless Level of Consciousness is awake, alert, obeys commands, Oriented to person, place, time, situation. Cardiovascular: No deficits noted. Denies chest pain, shortness of breath, Capillary refill < 3 seconds Clubbing of nail beds is absent JVD is absent Patient's skin is warm and dry. Respiratory: No deficits noted. Airway is patent Respiratory effort is even, unlabored, Respiratory pattern is regular, symmetrical. GI: No deficits noted. Reports nausea. : No deficits noted. No signs and/or symptoms were reported regarding the genitourinary system. Derm: No deficits noted. No signs and/or symptoms reported regarding the dermatologic system. Skin is intact, is healthy with good turgor, Skin is dry, Skin is normal, Skin temperature is warm. Musculoskeletal: Circulation, motion, and sensation intact. Range of motion: intact in all extremities, Reports pain in back. 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 - Social history:: Smoking status: Patient reports the use of cigarette tobacco products, smokes one pack cigarettes per day. Patient uses street drugs, marijuana, Patient/guardian denies using alcohol. Screenin/21 00:30 [facility] ED Fall Risk Assessment (Adult) History of falling in the last 3 months, including since admission Yes- single mechanical fall (1 pt) Confusion or Disorientation No (0 pts) Intoxicated or Sedated No (0 pts) Impaired Gait No (0 pts) Mobility Assist Device Used No (0 pt) Altered Elimination No (0 pt) Score/Fall Risk Level 0 - 2 = Low Risk Oriented to surroundings, Maintained a safe environment, Educated pt \T\ family on fall prevention, incl call for assistance when getting out of bed, Assessed \T\ reinforced patient's understanding of fall precautions. Abuse screen: Denies threats or abuse. Denies injuries from another. Nutritional screening: No deficits noted. Tuberculosis screening: No symptoms or risk factors identified. Assessment: 08/24 23:06 General: Appears uncomfortable, patient refused orthostatic blood pressures at this ap3 time. . Pain: Complains of pain in back Pain radiates to abdomen Pain currently is 10 out of 10 on a pain scale. Pain began suddenly. Neuro: Level of Consciousness is awake, alert, obeys commands, Oriented to person, place, time, situation. Cardiovascular: Patient's skin is warm and dry. Respiratory: Airway is patent Respiratory effort is even, unlabored, Respiratory pattern is regular, symmetrical. 08/25 00:30 Reassessment: Patient appears in no apparent distress at this time. No changes from kl previously documented assessment. Patient and/or family updated on plan of care and expected duration. Pain level reassessed. Patient is alert, oriented x 3, equal unlabored respirations, skin warm/dry/pink. Vital Signs: 08/24 21:56 BP 123 / 95; Pulse 59; Resp 17 S; Temp 98.2(TE); Pulse Ox 100% on R/A; Weight 47.63 kg lg3 (R); Height 5 ft. 6 in. (R); Pain 10/10; 23:07 BP 139 / 90; Pulse 69; Resp 17; Pulse Ox 98% on R/A; Pain 10/10; ap3 08/25 00:30 BP 136 / 88; Pulse 64; Resp 16 S; Temp 98.1(TE); Pulse Ox 99% on R/A; kl 08/24 21:56 Body Mass Index 16.95 (47.63 kg, 167.64 cm) lg3 02 21:56 Pain Scale: Adult lg3 23:07 Pain Scale: Adult ap3 ED Course: 08/24 21:50 Patient arrived in ED. kj1 21:50 Yvon[facility] Bynum FNP-C [facility] kb 21:50 Iker Davies MD is Attending Physician. kb 22:00 Triage completed. lg3 22:00 Arm band placed on right wrist. lg3 22:51 CT Head C Spine In Process Unspecified. EDMS 22:51 CT Lumbar Spine Wo Con In Process Unspecified. EDMS 23:20 EKG done, by ED staff, reviewed by Yvonne MARIN. ap3 08/25 00:30 Patient has correct armband on for positive identification. Placed in gown. Bed in low kl position. Call light in reach. Side rails up X 1. Door closed. Noise minimized. Warm blanket given. Family accompanied patient. 00:30 No provider procedures requiring assistance completed. 00:42 IV discontinued, intact, bleeding controlled, No redness/swelling at site. Pressure pf1 dressing applied. Administered Medications: 08/24 23:06 Drug: morphine IVP or IV 4 mg IVP once over 4 mins Route: IVP; Infused Over: 4 mins; ap3 Site: right antecubital; 08/25 01:44 Follow up: Response: No adverse reaction 08/24 23:06 Drug: Ondansetron IVP 4 mg IVP once; over 2 minutes Route: IVP; Site: right antecubital;ap3 02 01:43 Follow up: Response: No adverse reaction 08/24 23:06 Drug: NS 0.9% IV 1000 ml IV at 1000 ml once Route: IV; Rate: 1000 ml; Site: right ap3 antecubital; 08/25 01:43 Follow up: IV Status: Completed infusion; IV Intake: 1000ml Medication: 00:42 VIS not applicable for this client. pf1 Intake: 01:43 IV: 1000ml; Total: 1000ml. Outcome: 00:02 Discharge ordered by MD. kb 00:42 Discharged to home via wheelchair, pf1 00:42 Condition: improved 00:42 Discharge instructions given to patient, Instructed on discharge instructions, follow up and referral plans. Demonstrated understanding of instructions, follow-up care, medications, Prescriptions given X 2, 00:43 Patient left the ED. pf1 Signatures: Dispatcher [employer] EDYvonne Chavarria, TANIA PORTILLO-Lizzie Nuñez, RN Deepika Kirk RN RN ap3 Jackson, Kandis kj1 Able, Lacie, RN RN lg3 Deepika Najera RN RN pf1
[2023-08-25 00:52] VITALS: TEMP 98.2
[2023-08-25 01:15] VITALS: BP 139/90; O2SAT 98
--- NOTE | 2023-08-25 12:17 | RAD REPORT ---
EXAM DESCRIPTION: CT - Spine Lumbar Wo Con - 08/25/2023 6:50 am CLINICAL HISTORY: The patient is 52 years old and is Female; PAIN TECHNIQUE: Axial computed tomography images of the lumbar spine without intravenous contrast. Sagi ttal and coronal reformatted images were created and reviewed. This CT exam was performed using one or more of the following dose reduction techniques: automated exposure control, adjustment of the mA and/or kV according to patient size, and/or use of iterative reconstruction technique. COMPARISON: CT Lumbar Spine dated October 15 2021 FINDINGS: VERTEBRAE: Acute compression fracture of the superior endplate of L1 is present. There i s mild height loss without evidence of retropulsion. There is no involvement of the posterior element s. The remaining vertebral body heights are maintained. DISCS/SPINAL CANAL/NEURAL FORAMINA: Mild vacuum disc phenomenon with disc space narrowing at L5-S 1 is present. Disc bulge at L5-S1 is present. Remaining intervertebral disc spaces are maintained. SOFT TISSUES: The soft tissues are normal. IMPRESSION: Acute compression fracture of the superior endplate of L1 with mild height loss and no r etropulsion. Electronically signed by: iL Butler MD 08/24/2023 11:[address]CE OF [address] [employer]EMAN Due to temporary technical issues with the PACS/Fluency reporting system, reports are being signed by the in house radiologist without review as a courtesy to ensure prompt reporting. The interpreting r adiologist is fully responsible for the content of the report.
--- NOTE | 2023-08-25 12:18 | RAD REPORT ---
EXAM DESCRIPTION: CT - Head C Spine Mpr Wo Con - 08/25/2023 6:50 am CLINICAL HISTORY: The patient is 52 years old and is Female; Pain;Syncope TECHNIQUE: Axial computed tomography images of the head/brain and cervical spine without intravenous contrast. Sagittal and coronal reformatted images were created and reviewed. This CT exam was pe rformed using one or more of the following dose reduction techniques: automated exposure control, a djustment of the mA and/or kV according to patient size, and/or use of iterative reconstruction techn ique. COMPARISON: CT September 29, 2021 FINDINGS: BRAIN: Unremarkable. No hemorrhage. No significant white matter disease. No edema. VENTRICLES: Unremarkable. No ventriculomegaly. SKULL: No acute fracture. SINUSES: Unremarkable as visualized. No acute sinusitis. MASTOID AIR CELLS: Unremarkable as visualized. No mastoid effusion. VERTEBRAE: The vertebral body heights and alignment are maintained. No acute fracture. DISCS/SPINAL CANAL/NEURAL FORAMINA: Intervertebral disc space narrowing and osteophyte formation is present most prominent from C5 through C7. Posterior disc osteophyte complexes causing neural fora valentín narrowing specifically from C5 through C7 are present. Mild canal narrowing at these levels is noted. The remaining intervertebral disc spaces are maintained. SOFT TISSUES: The soft tissues are normal. LUNG APICES: Emphysematous changes of the lung apices is present. IMPRESSION: 1. No acute intracranial findings. 2. Spondylosis of the cervical spine without acute findings. Electronically signed by: Li Butler MD 08/24/2023 11:26 PM DIRECTOR [employer] Due to temporary technical issues with the PACS/Fluency reporting system, reports are being signed by the in house radiologist without review as a courtesy to ensure prompt reporting. The interpreting r adiologist is fully responsible for the content of the report.
== END ==
LOC: ER 21:45
DX: S32.019A Unspecified fracture of first lumbar vertebra, initial encounter for closed fracture (principal); W18.30XA Fall on same level, unspecified, initial encounter; F17.210 Nicotine dependence, cigarettes, uncomplicated; Z88.5 Allergy status to narcotic agent
CPT/HCPCS: 85025; 80048; 36415; 83735; 85610; 80076; 85730; 84484; 72131; 70450; 72125; J2405; 93005; J7030

== ENCOUNTER 2024-04-12 10:51 | Inpatient (IN) | payer OTHER, SELFPAY ==
--- OUTSIDE RECORDS SUMMARY | 2024-04-12 10:55 | XMS REPORT | Continuity of Care Document ---
Author Name Unknown Address [address] [place] [address] [facility] Address [address] [place] [address] Care Team Providers Care Wire Sawyer Name Role Phone Unavailable Unavailable Unavailable Encounters Start Date/Time End Date/Time Encounter Type Admission Type Attending Clinicians Care Facility Care Department Encounter ID Source 2023-06-09 13:40:33 2023-06-09 13:40:33 Outpatient [facility] SFA [id number] Piter Campos 2023-02-23 16:22:48 2023-02-23 16:22:48 Outpatient SFA SFA [id number] Piter Campos 2023-01-13 16:25:33 2023-01-13 16:25:33 Outpatient SFA SFA [id number] Piter Campos 2023-01-08 14:28:45 2023-01-08 14:28:45 Outpatient SFA SFA [id number] Piter Campos 2023-01-06 08:35:00 2023-01-06 08:35:00 Outpatient SFA SFA [id number] Piter Campos 2022-10-29 08:46:07 2022-10-29 08:46:07 Outpatient SFA SFA [id number] Piter Campos Results Test Description Test Time Test Comments Results Result Co mments Source LIPID [id number] 06:08:20* Test Item Value Reference Range Interpretation Comme nts CHOLESTEROL (test code = 2210) 140 MG/DL <200 TRIGLYCERIDES (test code = 2232) 75 MG/DL <150 HDL CHOLESTEROL (test code = 2220) 53 MG/DL >39 CALC LDL CHOL (test code = 2237) 71 MG/DL <100 NOTE: CALCULATED LDL IS BASED ON HARI-MIN METHOD WHICHINCLUDES ADJUSTABLE TRIGLYCERIDE:VLDL CHOLESTEROL RATIO.THIS FACTOR VARIES BY MEASURED TRIGLYCERIDE AND NON-HDLCHOLESTEROL CONCENTRATIONS WITH INCREASED CALCULATED LDL SEENIN HIGHER TRIGLYCERIDE OR LOWER NON-HDL SPECIMENS. FOR MOREINFORMATION, SEE CLIENT ANNOUNCEMENT AT [email or web address] /CalcLDL-C RISK RATIO LDL/HDL (test code = 2238) 1.34 RATIO <3.22 UNLESS OTHERW ISE INDICATED, ALL TESTING PERFORMED AT [facility] [address] [place] [address] POT OPERATOR: AL GARCIA M.D. CLIA NUMBER [id number] [facility] [place]. [id number] HEMOGLOBIN [id number] 05:34:34* Test Item Value Reference Range Interpretation Comme nts HEMOGLOBIN A1c (test code = 59776) 8.4 % 4.2-5.6 H [employer] GUIDELINES FOR HGB A1C: [...] CONSIDER ALTERNATE TESTING OR LABORATORY CONSULTATION. LIPID [id number] 19:17:31* Test Item Value Reference Range Interpretation [...] SPECIMENS. FOR MOREINFORMATION, SEE CLIENT ANNOUNCEMENT AT [email or web address] /CalcLDL-C RISK RATIO LDL/HDL (test code = 2238) 2.96 RATIO <3.22 [facility] has i mportant pathology staff changes effective 09/02/2022. New pathology staff will provide uninterrupted, excellent patient care and clinical consultation. See URL: [email or web address]. UNLESS OTHERWISE INDICATED, ALL TESTING PERFORMED AT [facility] [address] [place] [id number] POT OPERATOR: AL GARCIA M.D. [place] NUMBER [id number] [facility] [place]. [id number] COMPREHENSIVE METABOLIC [id number] 19:17:31* Test Item Value Reference Range Interpretation Comme nts GLUCOSE (test code = 2217) 257 MG/DL 70-99 H BUN (test code = 2208) 16 MG/DL 6-20 CREATININE (test code = 2214) 0.83 MG/DL 0.60-1.30 eGFR (2020 CKD-EPI) (test code = 03497) 84 ML/MIN/1.73 >60 CALC BUN/CREAT (test code = 2235) 19 RATIO 6-28 SODIUM (test code = 223) 142 MEQ/L 133-146 POTASSIUM (test code = 2228) 4.6 MEQ/L 3.5-5.4 CHLORIDE (test code = 2215) 100 MEQ/L 95-107 CARBON DIOXIDE (test code = 2206) 25 MEQ/L 19-31 CALCIUM (test code = [...] (test code = 2219) 16 U/L 5-40 ALBUMIN/CREATININE RATIO, URINE, [id number] 06:04:56* Test Item Value Reference Range Interpretation Comme nts CREATININE, URINE, CONC. (test code = 2072) 353.2 MG/DL NOT ESTAB ALBUMIN, URINE, RANDOM (test code = 01756) 2.5 MG/DL NOT ESTAB CALC ALBUMIN/CREAT, RND (test code = 34022) 7 MG/G <30 Note: Albumin/Creatinine ratio reference interval reflects ADA and NKF guidelines. HEMOGLOBIN [id number] 04:25:31* Test Item Value Reference Range Interpretation Comme nts HEMOGLOBIN A1c (test code = 84256) 10.2 % 4.2-5.6 H [employer] GUIDELINES FOR HGB A1C: [...] CONSIDER ALTERNATE TESTING OR LABORATORY CONSULTATION. LIPID [id number] 03:35:41* Test Item Value Reference Range Interpretation [...] SPECIMENS. FOR MOREINFORMATION, SEE CLIENT ANNOUNCEMENT AT [email or web address] /CalcLDL-C RISK RATIO LDL/HDL (test code = 2238) 2.87 RATIO <3.22 COMPREHENSIVE METABOLIC [id number] 03:35:41* Test Item Value Reference Range Interpretation [...] 5-40 UNLESS OTHERWISE INDICATED, [facility] [address] [place] [address] POT OPERATOR: WATSON CLOUD M.D. CLIA NUMBER [id number] [facility] [place]. [id number] HEMOGLOBIN [id number] 03:19:13* Test Item Value Reference Range Interpretation Comme nts HEMOGLOBIN A1c (test code = 27748) 11.2 % 4.2-5.6 H [employer] GUIDELINES FOR HGB A1C: [...]
[2024-04-12] MEDS ORDERED: METHYLPREDNISOLONE 125 MG INJ ONE (11:25)
[2024-04-12] MEDS ORDERED: MAGNESIUM SULFATE 1 gm IVPB 1 GM/100 ML BAG IV ONE (11:25)
[2024-04-12] MEDS ORDERED: IPRATROPIUM BROM 0.5MG/2.5ML ONE (11:25)
[2024-04-12] MEDS ORDERED: LEVALBUTEROL 1.25 MG/3 ML NEB ONE ×2 (11:25→13:20)
[2024-04-12] MEDS ORDERED: NA CHLORIDE 0.9% 500 ML ONE (11:25)
[2024-04-12 12:04] LABS: Absolute Eosinophils 0.5 K/uL (0-0.5); Absolute Lymphocytes (CBC) 1.6 K/uL (0.7-4.9); Absolute Monocytes 0.4 K/uL (0.1-1.3); Absolute Neutrophil 6.7 K/uL (1.8-8.0); Basophils % 0.5 % (0-1.3); Eosinophils % 5.6 % (0-4.4); Hematocrit 49.8 % (36.0-45.0); Hemoglobin 16.8 g/dL (12.0-15.0); Lymphocytes % 17.8 % (15.3-44.8); MCH 31.8 pg (27.0-35.0); MCHC 33.8 g/dL (32.0-36.0); MCV 94.1 fL (80-100); MPV 10.7 fL (7.6-11.3); Neutrophils % 72.1 % (41.7-73.7); Platelets 132 thou/uL (152-406); RBC Red Blood Cell Count 5.29 M/uL (3.86-4.86); Red Cell Distribution Width 13.1 % (12.1-15.2)
[2024-04-12 12:07] LABS: PT Prothrombin Time 11.8 SECONDS (9.4-12.5); Protime INR 1.06
--- NOTE | 2024-04-12 12:07 | RAD REPORT ---
EXAMINATION: ONE VIEW CHEST XR CLINICAL INDICATION: COPD;Cough;Fever TECHNIQUE: Frontal chest projection is submitted. Examination is limited by patient positioning and t echnique. COMPARISON: 11/09/2019 FINDINGS: The lungs are diffusely emphysematous but grossly clear. The heart is normal in size. No displaced fr actures identified. IMPRESSION: COPD without an acute process suspected.
[2024-04-12 12:15] LABS: Albumin 4.1 g/dL (3.4-5.0); Albumin/Globulin Ratio 0.8 (1.1-1.8); Anion Gap 10.1 mEq/L (5.0-15.0); Bilirubin Total 0.7 mg/dL (0.2-1.0); Globulin 4.9 g/dL (2.3-3.5); Potassium 4.1 mEq/L (3.5-5.1); Troponin High Sensitivity 5.6 pg/mL (<58.9)
[2024-04-12 12:26] LABS: SARS-CoV-2 Antigen CONTROL BLUE LINE VIS/BG OK; SARS-CoV-2 Antigen Rapid Res Negative (Negative)
[2024-04-12] MEDS ORDERED: Levofloxacin500mg IV 500 MG/100 ML BAG IV ONE (13:20)
--- NOTE | 2024-04-12 13:27 | EDPHYS ---
Physician Documentation [facility] Name: Fiorella Painting Age: 53 yrs Sex: Female : 1970 Arrival Date: 04/12/2024 Time: 10:51 Bed 14 Private MD: ED Physician Adolph Bellamy HPI: 04/12 12:42 This 53 yrs old Female presents to ER via Wheelchair with complaints of Breathing rn Difficulty. 12:42 The patient has shortness of breath at rest, with light activity. Onset: The rn symptoms/episode began/occurred 3 day(s) ago. Duration: The symptoms are continuous. The patient's shortness of breath is aggravated by exertion, light activity, is alleviated by nothing. Severity of symptoms: At their worst the symptoms were moderate in the emergency department the symptoms are unchanged. The patient has experienced similar episodes in the past. Patient reports 3 days of shortness of breath and dyspnea on exertion, chronic smoker but no diagnosis of COPD. Reports felt like she got sick 3 to 4 days ago with fever and cough with congestion. No chest pain. No hemoptysis. No history of DVT or PE.. 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 - Infectious Disease History:: Denies. - Social history:: Smoking status: Patient reports the use of cigarette tobacco products, smokes one-half pack cigarettes per day. - Family history:: not pertinent. - Hospitalizations: : No recent hospitalization is reported. ROS: 12:42 Constitutional: Positive for subjective fever and chills Cardiovascular: Negative for rn chest pain, palpitations, and edema, Respiratory: Positive for cough and shortness of breath Abdomen/GI: Negative for abdominal pain, nausea, vomiting, diarrhea, and constipation, MS/Extremity: Negative for injury and deformity, Skin: Negative for injury, rash, and discoloration, Neuro: Positive for headache and generalized weakness Exam: 12:42 Constitutional: This is a well developed, well nourished patient who is awake, alert, rn and in no acute distress. Head/Face: Normocephalic, atraumatic. ENT: Dry mucous membranes, no stridor Respiratory: Mild tachypnea with wheezing noted, no retractions Abdomen/GI: Soft, nontender Neuro: Awake and alert, GCS 15 13:15 ECG was reviewed by the Attending Physician. rn Vital Signs: 11:09 BP 106 / 65; Pulse 112; Resp 20 S; Temp 97.5(O); Pulse Ox 95% on R/A; Weight 47.63 kg; iw Height 5 ft. 6 in. ; 12:07 BP 115 / 78; Pulse 102; Resp 18; Pulse Ox 98% on R/A; mb9 12:44 BP 126 / 80; Pulse 89; Resp 16; Pulse Ox 92% on R/A; mb9 13:10 BP 117 / 72; Pulse 83; Resp 16; Pulse Ox 100% on 2 lpm NC; mb9 11:09 Body Mass Index 16.95 (47.63 kg, 167.64 cm) iw MDM: 11:03 Patient medically screened. rn 13:21 Differential diagnosis: Anemia Bronchitis Chronic Obstructive Pulmonary Disease rn Myocardial Infarction pneumonia, Pneumothorax pulmonary edema. Data reviewed: vital signs, nurses notes, lab test result(s), EKG, radiologic studies, plain films, and as a result, I will admit patient. Consideration of Admission/Observation Patient was admitted/placed on observation. Escalation of care including admission/observation considered. Counseling: I had a detailed discussion with the patient and/or guardian regarding the historical points, exam findings, and any diagnostic results supporting the discharge/admit diagnosis, lab results, radiology results, the need for further work-up and treatment in the hospital. Special discussion:. ED course: Patient with moderate COPD exacerbation, oxygen 85%, put on 2 L nasal cannula, despite multiple nebulizer medication, IV magnesium and IV steroids patient is still dyspneic with tachypnea and oxygen requirement. Will admit to hospitalist service for further management.. 13:21 ED course: I personally spent 35 minutes engaged in work directly related to the rn individual patient's care. This does not include any time spent performing procedures. The patient has been deemed critically ill because of moderate to severe COPD exacerbation, elevated lactic acid, requiring multiple nebulizer treatments as well as IV magnesium and IV steroids for stabilization as well as organization of admission to hospital.. 04/12 11:22 Order name: Blood Culture Adult (2) rn 04/12 11:22 Order name: CBC with Diff; Complete Time: 12:10 rn 04/12 11:22 Order name: CMP; Complete Time: 13:12 rn 04/12 11:22 Order name: Lactate w/ 2H reflex if indic.; Complete Time: 13:12 rn 04/12 11:22 Order name: Protime (+inr); Complete Time: 12:10 rn 04/12 11:22 Order name: Ptt, Activated; Complete Time: 12:10 rn 04/12 11:22 Order name: Flu; Complete Time: 13:12 rn 04/12 11:22 Order name: Strep rn 04/12 11:22 Order name: SARS-COV-2 Antigen Rapid; Complete Time: 13:12 rn 04/12 11:22 Order name: BNP; Complete Time: 13:12 rn 04/12 11:22 Order name: Troponin High Sensitivity; Complete Time: 13:12 rn 04/12 12:29 Order name: Throat Culture EDMS 04/12 13:42 Order name: Urinalysis w/ reflexes EDMS 04/12 13:42 Order name: Basic Metabolic Panel EDMS 04/12 13:42 Order name: Basic Metabolic Panel EDMS 04/12 13:42 Order name: Basic Metabolic Panel EDMS 04/12 13:42 Order name: Basic Metabolic Panel EDMS 04/12 13:42 Order name: CBC with Automated Diff EDMS 04/12 13:42 Order name: CBC with Automated Diff EDMS 04/12 13:42 Order name: CBC with Automated Diff EDMS 04/12 13:42 Order name: CBC with Automated Diff EDMS 04/12 13:42 Order name: Magnesium EDMS 04/12 13:42 Order name: Magnesium EDMS 04/12 13:42 Order name: Magnesium EDMS 04/12 13:42 Order name: Magnesium EDMS 04/12 14:20 Order name: Ghost Lactate-NO COLLECT Timer EDMS 04/12 11:22 Order name: Chest Single View XRAY; Complete Time: 12:10 rn 04/12 11:22 Order name: EKG; Complete Time: 11:22 rn 04/12 11:22 Order name: Accucheck; Complete Time: 11:50 rn 04/12 11:22 Order name: Cardiac monitoring; Complete Time: 11:50 rn 04/12 11:22 Order name: EKG - Nurse/Tech; Complete Time: 11:50 rn 04/12 11:22 Order name: IV Saline Lock - Large Bore; Complete Time: 11:50 rn 04/12 11:22 Order name: Labs collected and sent; Complete Time: 11:50 rn 04/12 11:22 Order name: O2 Per Protocol; Complete Time: 11:50 rn 04/12 11:22 Order name: O2 Sat Monitoring; Complete Time: 11:50 rn 04/12 11:22 Order name: Vital Signs; Complete Time: 11:50 rn EC:15 Rate is 88 beats/min. Rhythm is regular. QRS [place] is Normal. [place] interval is normal. QRS rn interval is normal. QT interval is normal. No Q waves. T waves are Normal. No ST changes noted. Clinical impression: NSR w/ Non-specific ST/T Changes. Interpreted by me. Reviewed by me. Administered Medications: 11:35 Drug: Levalbuterol Inhalation 1.25 mg Inhalation once Route: Inhalation; mb9 11:35 Drug: Levalbuterol Inhalation 1.25 mg Inhalation once Route: Inhalation; mb9 11:35 Drug: Ipratropium Inhalation Aerosol 0.5 mg Inhalation once Route: Inhalation; mb9 11:45 Drug: MethylPrednisoLONE IVP 125 mg IVP once Route: IVP; Site: right antecubital; mb9 13:23 Follow up: Response: No adverse reaction mb9 11:49 Drug: NS 0.9% IV 500 ml IV at bolus once Route: IV; Rate: bolus; Site: right mb9 antecubital; 14:24 Follow up: Response: No adverse reaction; IV Status: Completed infusion mb9 11:50 Drug: Magnesium Sulfate IVPB 1 grams IVPB once over 1 hrs Route: IVPB; Infused Over: 1 mb9 hrs; Site: right antecubital; 13:23 Follow up: Response: No adverse reaction; IV Status: Completed infusion mb9 13:27 Drug: Levalbuterol Inhalation 1.25 mg Inhalation once Route: Inhalation; mb9 13:27 Drug: levofloxacin IVPB 500 mg 100 ml IVPB once over 60 mins Volume: 100 ml; Route: mb9 IVPB; Infused Over: 60 mins; Site: right antecubital; Disposition: 13:21 Critical Care:. rn Disposition Summary: 04/12/24 13:27 Hospitalization Ordered Notes: Hospitalization Status: Inpatient Admission rn Provider: Karan Espino rn Location: Telemetry/MedSurg (Inpatient) rn Condition: Stable rn Problem: an acute exacerbation rn Symptoms: have improved rn Bed/Room Type: Standard rn Room Assignment: 212(04/12/24 13:58) bd Diagnosis - COPD/ Chronic obstructive pulmonary disease with (acute) exacerbation rn - Hypoxemia rn Forms: - Medication Reconciliation Form rn - SBAR form rn - Leadership Thank You Letter rn community health time excluding procedures: 13:21 Critical care time: Bedside Care: 35 minutes. Total time: 35 minutes rn Signatures: Dispatcher [employer] EDMS Merly Merino Irene, RN RN iw Nieto, Roman, MD MD rn Wilkerson, Amanda Silver RN RN mb9 Corrections: (The following items were deleted from the chart) 11:22 11:22 BLOOD CULTURE*+BA.LAB.BRZ ordered. EDMS EDMS 11:22 11:22 CBC+H.LAB.BRZ ordered. EDMS EDMS 11:22 11:22 COMPREHENSIVE METABOLIC PANEL+C.LAB.BRZ ordered. EDMS EDMS 11:22 11:22 LACTATE+C.LAB.BRZ ordered. EDMS EDMS 11:22 11:22 PROTIME (+INR)+COAG.LAB.BRZ ordered. EDMS EDMS 11:22 11:22 PTT, ACTIVATED+COAG.LAB.BRZ ordered. EDMS EDMS 11:22 11:22 Influenza Screen (A \T\ B)+BA.LAB.BRZ ordered. EDMS EDMS 11:22 11:22 Group A Streptococcus Rapid Sc+BA.LAB.BRZ ordered. EDMS EDMS 11:22 11:22 SARS-COV-2 Antigen Rapid+I.LAB.BRZ ordered. EDMS EDMS 13:58 13:27 rn bd
--- NOTE | 2024-04-12 13:27 | ER ---
Nurse's Notes [facility] Name: Fiorella Painting Age: 53 yrs Sex: Female : 1970 Arrival Date: 04/12/2024 Time: 10:51 Bed 14 Private MD: Diagnosis: COPD/ Chronic obstructive pulmonary disease with (acute) exacerbation;Hypoxemia Presentation: 04/12 11:09 Chief complaint: Patient states: can;t breathe, chest congestion, worse on exertion , iw +cough, started Wednesday. Coronavirus screen: Client presents with at least one sign or symptom that may indicate coronavirus-19. Ebola Screen: No symptoms or risks identified at this time. Initial Sepsis Screen: Does the patient meet any 2 criteria? HR > 90 bpm. Does the patient have a suspected source of infection? No. Patient's initial sepsis screen is negative. Risk Assessment: Do you want to hurt yourself or someone else? Patient reports no desire to harm self or others. 11:09 Method Of Arrival: Wheelchair iw 11:09 Acuity: RAJ 3 iw 11:10 Onset of symptoms was April 09, 2024. 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 - Infectious Disease History:: Denies. - Social history:: Smoking status: Patient reports the use of cigarette tobacco products, smokes one-half pack cigarettes per day. - Family history:: not pertinent. - Hospitalizations: : No recent hospitalization is reported. Screenin:48 [facility] ED Fall Risk Assessment (Adult) History of falling in the last 3 months, mb9 including since admission No falls in past 3 months (0 pts) Confusion or Disorientation No (0 pts) Intoxicated or Sedated No (0 pts) Impaired Gait No (0 pts) Mobility Assist Device Used No (0 pt) Altered Elimination No (0 pt) Score/Fall Risk Level 0 - 2 = Low Risk Oriented to surroundings, Maintained a safe environment, Educated pt \T\ family on fall prevention, incl call for assistance when getting out of bed. Abuse screen: Denies threats or abuse. Nutritional screening: No deficits noted. Tuberculosis screening: No symptoms or risk factors identified. Assessment: 11:48 General: Appears in no apparent distress. Behavior is calm, cooperative. Pain: Denies mb9 pain. Neuro: Rocha Agitation-Sedation Scale (RASS): 0 - Alert and Calm Level of Consciousness is awake, alert, obeys commands, Oriented to person, place, time, situation, Appropriate for age. Cardiovascular: Heart tones S1 S2 present Patient's skin is warm and dry. Rhythm is regular. Respiratory: Reports shortness of breath cough that is Airway is patent Respiratory effort is even, unlabored, Respiratory pattern is regular, symmetrical, Breath sounds with wheezes bilaterally. GI: Abdomen is flat, non-distended. : No signs and/or symptoms were reported regarding the genitourinary system. EENT: No signs and/or symptoms were reported regarding the EENT system. Derm: Skin is pink, warm \T\ dry. Musculoskeletal: Range of motion: intact in all extremities. 12:45 Reassessment: No changes from previously documented assessment. Patient and/or family mb9 updated on plan of care and expected duration. Pain level reassessed. Patient is alert, oriented x 3, equal unlabored respirations, skin warm/dry/pink. 13:09 Reassessment: pt SPO2 dropped to 86% on RA. Pt placed on 2 l/min, SPO2 100%. ERP mb9 notified. Vital Signs: 11:09 BP 106 / 65; Pulse 112; Resp 20 S; Temp 97.5(O); Pulse Ox 95% on R/A; Weight 47.63 kg; iw Height 5 ft. 6 in. ; 12:07 BP 115 / 78; Pulse 102; Resp 18; Pulse Ox 98% on R/A; mb9 12:44 BP 126 / 80; Pulse 89; Resp 16; Pulse Ox 92% on R/A; mb9 13:10 BP 117 / 72; Pulse 83; Resp 16; Pulse Ox 100% on 2 lpm NC; mb9 11:09 Body Mass Index 16.95 (47.63 kg, 167.64 cm) iw ED Course: 10:52 Patient arrived in ED. mr 11:03 Adolph Bellamy MD is Attending Physician. rn 11:10 Triage completed. iw 11:11 Arm band placed on. iw 11:21 Amanda Gaston RN is Primary Nurse. mb9 11:48 Placed in gown. Bed in low position. Call light in reach. Side rails up X 1. Provided mb9 Education on: press call light if needing anything. Client placed on continuous cardiac and pulse oximetry monitoring. NIBP monitoring applied. equipment monitor phototypesetting on. Door closed. Noise minimized. Warm blanket given. Pillow given. 11:48 Initial lab(s) drawn, by me, sent to lab. COVID swab sent to lab. Flu and/or RSV swab mb9 sent to lab. Strep swab sent to lab. Inserted saline lock: 20 gauge in right antecubital area, using aseptic technique. Blood collected. Flushed with 10 mL NS. 11:49 No provider procedures requiring assistance completed. mb9 11:58 Chest Single View XRAY In Process Unspecified. EDMS 12:07 EKG done, by ED staff, reviewed by Adolph Bellamy MD. mb9 13:27 Karan Espino is Hospitalizing Provider. rn 14:10 1410 CM met with Mrs. Painting at the bedside in the ED exam room. Patient identified by ane name and . Demographic sheet confirmed. Patient states she lives with her in a single story home. She reports that prior to admission, she performs ADLs independently and without physical limitations. No HH, home oxygen, no DME, or other medical services at this time. No MPOA in place. Patient confirms she is self pay and does not have a PCP. provided community resource packet to patient. Her plan is to return home upon discharge and she states her , Jorge will transport her home. CM team will continue to follow and coordinate care during this hospital stay. 14:23 Patient admitted, IV remains in place. mb9 Administered Medications: 11:35 Drug: Levalbuterol Inhalation 1.25 mg Inhalation once Route: Inhalation; mb9 11:35 Drug: Levalbuterol Inhalation 1.25 mg Inhalation once Route: Inhalation; mb9 11:35 Drug: Ipratropium Inhalation Aerosol 0.5 mg Inhalation once Route: Inhalation; mb9 11:45 Drug: MethylPrednisoLONE IVP 125 mg IVP once Route: IVP; Site: right antecubital; mb9 13:23 Follow up: Response: No adverse reaction mb9 11:49 Drug: NS 0.9% IV 500 ml IV at bolus once Route: IV; Rate: bolus; Site: right mb9 antecubital; 14:24 Follow up: Response: No adverse reaction; IV Status: Completed infusion mb9 11:50 Drug: Magnesium Sulfate IVPB 1 grams IVPB once over 1 hrs Route: IVPB; Infused Over: 1 mb9 hrs; Site: right antecubital; 13:23 Follow up: Response: No adverse reaction; IV Status: Completed infusion mb9 13:27 Drug: Levalbuterol Inhalation 1.25 mg Inhalation once Route: Inhalation; mb9 13:27 Drug: levofloxacin IVPB 500 mg 100 ml IVPB once over 60 mins Volume: 100 ml; Route: mb9 IVPB; Infused Over: 60 mins; Site: right antecubital; Medication: 11:49 VIS not applicable for this client. mb9 Outcome: 13:27 Decision to Hospitalize by Provider. rn 15:05 Admitted to Med/surg accompanied by nurse, via wheelchair, with oxygen, mb9 15:05 Condition: stable 15:05 Instructed on the need for admit, 15:05 Patient left the ED. mb9 Signatures: Dispatcher [employer] EDLA Amanda Cheney, Reg Reg Angelita Burrell, SULEMA LEONE iw Adolph Bellamy MD MD rn Wilkerson, Amanda Silver RN RN mb9 Becki Reyes RN RN ane Corrections: (The following items were deleted from the chart) 11:11 11:09 BP 80 / 59; Pulse 112bpm; Resp 20bpm; Spontaneous; Pulse Ox 95% RA; Temp 97.5F iw Oral; iw 11:12 11:09 BP 106 / 65; Pulse 112bpm; Resp 20bpm; Spontaneous; Pulse Ox 95% RA; Temp 97.5F iw Oral; iw 13:10 12:44 BP 126 / 80; Pulse 89bpm; Resp 16bpm; Pulse Ox 94% RA; mb9 mb9
[2024-04-12] MEDS ORDERED: ONDANSETRON 4 MG/2 ML VIAL IV PRN (13:37)
--- NOTE | 2024-04-12 13:45 | P.HP ---
Certification for Inpatient Patient admitted to: Inpatient With expected LOS: <2 Midnights Practitioner: I am a practitioner with admitting privileges, knowledge of patient current condition, hospital course, and medical plan of care. Services: Services provided to patient in accordance with Admission requirements found in Title 42 Section 412.3 of the Code of Federal Regulations Patient History Date of Service: 04/12/24 Reason for admission: COPD exacerbation History of Present Illness: 53-year-old female with [id number] diabetes, hyperlipidemia, tobacco use, past medical history presents to the emergency room with shortness of breath. She reports shortness of breath started 3 days ago, worse with exertion, shortness of breath is progressively getting worse. She reports recent viral illness, congestion, productive cough, no reported fever, she reports no history or of COPD.She reports taking otcf-sed-aiiyuvr cold and cough medications that are not effective. She reports tobacco use, half pack a day. She does not use inhalers, nebulizers, she reports not seeing a PCP regularly. Plan to admit for COPD exacerbation, for IV steroids, oxygen, IV antibiotics. Allergies oxycodone HCl [From OxyContin] Allergy (Mild, Verified 11/10/19 02:30) Nausea/Vomiting Home Medications: Metformin ER [Glucophage ER*] 1,000 mg PO BID 10/29/16 PARoxetine HCL [Paxil*] 20 mg PO DAILY 10/29/16 Aspirin [Aspirin EC 81 MG] 81 mg PO DAILY #90 tablet. 11/10/19 Atorvastatin Calcium [Lipitor] 80 mg PO DAILY #30 tablet 11/10/19 Folic Acid 1 mg PO DAILY #30 tablet 11/10/19 Metoprolol Tartrate 12.5 mg PO DAILY #30 tablet 11/10/19 Quetiapine Fumarate [Seroquel] 100 mg PO BEDTIME 11/10/19 glipiZIDE [Glipizide] 5 mg PO DAILY #90 tablet 11/10/19 - Past Medical/Surgical History Diabetic: Yes -: Type 2 diabetes -: depression - Family History Father -: Stroke - Social History Alcohol use: No CD- Drugs: No Caffeine use: Yes Review of Systems As per HPI Physical Examination - Physical Exam General: Alert, Oriented x3, Mild distress HEENT: Atraumatic, Normocephalic Neck: Supple, JVD not distended Respiratory: Normal air movement, Expiratory wheezes, Inspiratory wheezes Cardiovascular: Normal pulses, Regular rate/rhythm Capillary refill: <2 Seconds Gastrointestinal: Normal bowel sounds, Soft and benign Musculoskeletal: No clubbing, No swelling Integumentary: No breakdown, No significant lesion Neurological: Normal gait, Normal speech - Studies Laboratory Data (last 24 hrs) 04/12/24 04/12/24 04/12/24 11:43 11:43 11:43 WBC 9.20 Hgb 16.8 H Hct 49.8 H Plt Count 132 L PT 11.8 INR 1.06 APTT 38.0 H Sodium 136 Potassium 4.1 BUN 16 Creatinine 0.90 Glucose 208 H Total Bilirubin 0.7 AST 13 L ALT 20 Alkaline Phosphatase 109 Microbiology Data (last 24 hrs): 04/12/24 11:31 Throat Group A Streptococcus Rapid Screen - Final 04/12/24 11:31 Nasopharnyx Influenza Type A Antigen Screen - Final 04/12/24 11:31 Nasopharnyx Influenza Type B Antigen Screen - Final Assessment and Plan - Problems (Diagnosis) (1) Acute hypoxic respiratory failure Current Visit: Yes Status: Acute (2) COPD exacerbation Current Visit: Yes Status: Acute (3) Lactic acidosis Current Visit: Yes Status: Acute (4) Tobacco use Current Visit: Yes Status: Chronic (5) Non-insulin dependent type 2 diabetes mellitus Current Visit: Yes Status: Chronic (6) Hyperlipidemia Current Visit: Yes Status: Chronic Qualifiers: Hyperlipidemia type: unspecified Qualified Code(s): E78.5 - Hyperlipidemia, unspecified - Plan Assessment plan Admit to MedSurg, telemetry, Medications, Solu-Medrol, IV antibiotics, nebs, antitussives, Labs, trend lactic, trend WBCs, Chest x-ray COPD without an acute process suspected. O2 2 L keep sats greater than 90% Resume appropriate home meds Full code Diabetic diet DVT Lovenox Disposition, home independent prior, pending hospital course Discharge Plan: Home - Advance Directives Does patient have a Living Will: No Does patient have a Durable POA for Healthcare: No - Code Status/Comfort Care Code Status: Full Code Critical Care: No Time Spent Managing Pts Care (In Minutes): 55
[2024-04-12] MEDS: NICOTINE 14 MG/PAT TD SCH (14:00)
[2024-04-12] MEDS: LEVALBUTEROL 0.63 MG/3 ML NEB NEB SCH (14:00)
[2024-04-12] MEDS: IPRATROPIUM BROM 0.5MG/2.5ML NEB SCH (14:00)
[2024-04-12 15:39] VITALS: BMI 16.9
[2024-04-12] MEDS: INSULIN REGULAR (HUMAN) 100 UNIT/ML SQ SCH (16:27)
[2024-04-12] MEDS: METHYLPREDNISOLONE 125 MG INJ IV SCH (16:28)
[2024-04-12] MEDS: ALPRAZOLAM 0.25 MG TABLET PO PRN (21:57)
[2024-04-12] MEDS: TRAZODONE 50 MG TABLET PO SCH (23:57)
[2024-04-13 05:14] LABS: Absolute Lymphocytes (CBC) 0.7 K/uL (0.7-4.9); Absolute Monocytes 0.1 K/uL (0.1-1.3); Absolute Neutrophil 6.3 K/uL (1.8-8.0); Basophils % 0.3 % (0-1.3); Hematocrit 42.4 % (36.0-45.0); Hemoglobin 14.3 g/dL (12.0-15.0); MCH 31.4 pg (27.0-35.0); MCHC 33.8 g/dL (32.0-36.0); MCV 92.9 fL (80-100); MPV 10.7 fL (7.6-11.3); Monocytes % 1.8 % (3.3-12.3); Neutrophils % 87.9 % (41.7-73.7); Platelets 126 thou/uL (152-406); RBC Red Blood Cell Count 4.56 M/uL (3.86-4.86); Red Cell Distribution Width 12.9 % (12.1-15.2)
[2024-04-13 05:30] LABS: Anion Gap 7.3 mEq/L (5.0-15.0); Potassium 4.3 mEq/L (3.5-5.1)
[2024-04-13 05:40] LABS: Band Neutrophils 14 % (0-1); Differential Total Cells Count 100; Lymphocytes 6 % (15-42); Monocytes 3 % (0-10); Reactive Lymphocytes 1 %; Segmented Neutrophils 76 % (40-80)
[2024-04-13 05:41] LABS: Blood Morphology Comment NOT SEEN (NOT SEEN); Platelet Estimate ADEQ
[2024-04-13] MEDS: ENOXAPARIN 40 MG/0.4 ML SQ SCH (08:16)
--- NOTE | 2024-04-13 08:33 | P.PN ---
Subjective Date of Service: 04/13/24 Chief Complaint: COPD exacerbation Subjective: Improving <An Kearns - Last Filed: 04/13/24 08:33> Date of Service: 04/13/24 <megan tiwari - Last Filed: 04/13/24 17:00> Review of Systems 10-point ROS is otherwise unremarkable General: As per HPI Eyes: Unremarkable ENT: Unremarkable Respiratory: Shortness of Breath, SOB with Excertion, Other (Improving) Cardiovascular: Unremarkable Gastrointestinal: Unremarkable Genitourinary: Unremarkable Musculoskeletal: Unremarkable Integumentary: Unremarkable Neurological: Unremarkable Lymphatics: Unremarkable <An Kearns - Last Filed: 04/13/24 08:33> Physical Examination - Vital Signs Temperature: 97.6 F Blood Pressure: 124/73 Pulse: 92 Respirations: 18 Pulse Ox (%): 99 - Physical Exam General: Alert, In no apparent distress, Oriented x3 HEENT: Atraumatic, Normocephalic Neck: Supple Respiratory: Normal air movement, Inspiratory wheezes Cardiovascular: No edema, Normal pulses, Regular rate/rhythm Capillary refill: <2 Seconds Gastrointestinal: Normal bowel sounds Musculoskeletal: No clubbing, No swelling Integumentary: No rashes Neurological: Normal speech, Normal tone, Normal affect Lymphatics: No axilla or inguinal lymphadenopathy Rectal: Deferred - Studies Laboratory Data (last 24 hrs) 04/12/24 04/12/24 04/12/24 11:43 11:43 11:43 WBC 9.20 Hgb 16.8 H Hct 49.8 H Plt Count 132 L PT 11.8 INR 1.06 APTT 38.0 H Sodium 136 Potassium 4.1 BUN 16 Creatinine 0.90 Glucose 208 H Total Bilirubin 0.7 AST 13 L ALT 20 Alkaline Phosphatase 109 Microbiology Data (last 24 hrs): 04/12/24 11:31 Throat Group A Streptococcus Rapid Screen - Final 04/12/24 11:31 Nasopharnyx Influenza Type A Antigen Screen - Final 04/12/24 11:31 Nasopharnyx Influenza Type B Antigen Screen - Final <An Kearns - Last Filed: 04/13/24 08:33> - Studies Microbiology Data (last 24 hrs): 04/12/24 11:31 Throat Group A Streptococcus Rapid Screen - Final 04/12/24 11:31 Nasopharnyx Influenza Type A Antigen Screen - Final 04/12/24 11:31 Nasopharnyx Influenza Type B Antigen Screen - Final <megan tiwari - Last Filed: 04/13/24 17:00> Assessment And Plan - Plan 53-year-old female with [id number] diabetes, hyperlipidemia, tobacco use, past medical history presents to the emergency room with shortness of breath. She reports shortness of breath started 3 days ago, worse with exertion, shortness of breath is progressively getting worse. She reports recent viral illness, congestion, productive cough, no reported fever, she reports no history or of COPD.She reports taking tvgh-ovo-nrxrepv cold and cough medications that are not effective. She reports tobacco use, half pack a day. She does not use inhalers, nebulizers, she reports not seeing a PCP regularly. Plan to admit for COPD exacerbation, for IV steroids, oxygen, IV antibiotics. - Problems (Diagnosis) (1) Acute hypoxic respiratory failure Current Visit: Yes Status: Acute (2) COPD exacerbation Current Visit: Yes Status: Acute (3) Lactic acidosis Current Visit: Yes Status: Acute (4) Tobacco use Current Visit: Yes Status: Chronic (5) Non-insulin dependent type 2 diabetes mellitus Current Visit: Yes Status: Chronic (6) Hyperlipidemia Current Visit: Yes Status: Chronic Qualifiers: Hyperlipidemia type: unspecified Qualified Code(s): E78.5 - Hyperlipidemia, unspecified - Plan Assessment plan Admit to MedSurg, telemetry, Medications, Solu-Medrol, IV antibiotics, nebs, antitussives, Labs, trend lactic, trend WBCs, Chest x-ray COPD without an acute process suspected. O2 2 L keep sats greater than 90% Resume appropriate home meds Full code Diabetic diet DVT Lovenox 04/13/24 feeling better, continues with inspiratory wheeze, on 1L O2 via N/C probable discharge tomorrow Disposition, home independent prior, pending hospital course Discharge Plan: Home - Advance Directives Does patient have a Living Will: No Does patient have a Durable POA for Healthcare: No - Code Status/Comfort Care Code Status: Full Code Critical Care: No <UrmilaAn Lai - Last Filed: 04/13/24 08:33> - Plan Patient seen and examined. Plan of care discussed with Ms. Kearns. COPD exacerbation. Respiratory status improved. Continue IV Solu-Medrol, scheduled nebs and antibiotics. Wean off oxygen. Assess oxygen saturation with ambulation on room air. <megan tiwari - Last Filed: 04/13/24 17:00>
[2024-04-13] MEDS: Levofloxacin 750mg IV 750 MG/150 ML BAG IV SCH (09:15)
[2024-04-13] MEDS: ACETAMINOPHEN 500 MG TAB PO PRN (12:35)
--- NOTE | 2024-04-13 14:38 | P.PN ---
Date of Service: 04/13/24 will move ssi to aggressive coverage second to increased FSBS with steroid initiation.
[2024-04-13] MEDS ORDERED: D10W 125 ML IV PRN (14:46)
[2024-04-13] MEDS ORDERED: GLUCAGON 1 MG/VIAL IM PRN (14:46)
[2024-04-13] MEDS: GUAIFENESIN 600 MG SA TAB PO SCH (15:03)
--- NOTE | 2024-04-13 16:55 | EKG ---
Test Date: 2024-04-12 Test Time: 11:58:44 General Scrap Worker: MB MEASUREMENT RESULTS: Intervals: Rate: 88 OR: 172 QRSD: 76 QT: 374 QTc: 452 [place]: P: 91 OR: 172 QRS: 81 T: 105 INTERPRETIVE STATEMENTS: Normal sinus rhythm Biatrial enlargement T wave abnormality, consider anterior ischemia Abnormal ECG Compared to ECG 08/24/2023 23:16:48 T-wave abnormality now present Possible ischemia now present First degree AV block no longer present Right-axis deviation no longer present Myocardial infarct finding no longer present Electronically Signed On 04-13-24 16:50:42 CDT by Robson Ravi
[2024-04-13] MEDS: INSULIN REGULAR (HUMAN) 100 UNIT/ML SQ SCH (17:25)
[2024-04-14 06:14] LABS: Absolute Lymphocytes (CBC) 0.6 K/uL (0.7-4.9); Absolute Monocytes 0.3 K/uL (0.1-1.3); Basophils % 0.3 % (0-1.3); Hematocrit 39.9 % (36.0-45.0); Hemoglobin 13.2 g/dL (12.0-15.0); Lymphocytes % 4.6 % (15.3-44.8); MCH 31.2 pg (27.0-35.0); MCHC 33.2 g/dL (32.0-36.0); MCV 94.1 fL (80-100); MPV 10.9 fL (7.6-11.3); Monocytes % 2.2 % (3.3-12.3); Platelets 110 thou/uL (152-406); RBC Red Blood Cell Count 4.24 M/uL (3.86-4.86); Red Cell Distribution Width 13.1 % (12.1-15.2)
[2024-04-14 06:20] LABS: Neutrophils % 92.9 % (41.7-73.7)
[2024-04-14 06:31] LABS: Anion Gap 6.4 mEq/L (5.0-15.0); Magnesium 1.8 mg/dL (1.6-2.4); Potassium 4.4 mEq/L (3.5-5.1)
[2024-04-14] MEDS: MAGNESIUM SULFATE 1 gm IVPB 1 GM/100 ML BAG IV ONE (06:44)
[2024-04-14 09:09] VITALS: BP 110/67; TEMP 97.1
[2024-04-14 09:30] VITALS: O2SAT 93
--- NOTE | 2024-04-14 09:33 | P.DS ---
Admission Date: 04/12/24 Discharge Date: 04/14/24 Disposition: ROUTINE DISCHARGE Discharge Condition: GOOD Reason for Admission: COPD exacerbation Consultations: none Brief History of Present Illness: 53-year-old female with [id number]-ztxxvuski diabetes, hyperlipidemia, tobacco use, past medical history presents to the emergency room with shortness of breath. She reports shortness of breath started 3 days ago, worse with exertion, shortness of breath is progressively getting worse. She reports recent viral illness, congestion, productive cough, no reported fever, she reports no history or of COPD.She reports taking vedf-ght-srbugec cold and cough medications that are not effective. She reports tobacco use, half pack a day. She does not use inhalers, nebulizers, she reports not seeing a PCP regularly. Plan to admit for COPD exacerbation, for IV steroids, oxygen, IV antibiotics. Hospital Course: Ms. Painting did well over the course of her hospitalization. She rec'd Levaquin and Solumedrol. FSBS tricia with initiation of steroids and she was placed on sliding scale insulin. She has not had an oxygen requirement since yesterday (04/13/24) and is eager to go home. New medications Levaquin 500mg po x 3 additional days Prednisone 40mg po daily x 3d, 20mg po daily x 3days, 10mg po daily x 3 days, 5mg po daily x 5 days increase Glipizide to 10mg daily x 2 weeks and then return to 5mg po daily Dulera 2 inhalations twice daily Rinse mouth after each use Vital Signs/Physical Exam: Temp Pulse Resp BP Pulse Ox 97.1 F 67 16 110/67 93 04/14/24 08:00 04/14/24 08:00 04/14/24 08:00 04/14/24 08:00 04/14/24 08:00 General: Alert, In no apparent distress, Oriented x3 HEENT: Atraumatic, Normocephalic Neck: Supple Respiratory: Clear to auscultation bilaterally Cardiovascular: No edema, Normal pulses, Regular rate/rhythm Capillary refill: <2 Seconds Gastrointestinal: Soft and benign Musculoskeletal: No clubbing Integumentary: No rashes Neurological: Normal speech, Normal tone, Normal affect Lymphatics: No axilla or inguinal lymphadenopathy External genitalia: Deferred Rectal: Deferred Laboratory Data at Discharge: WBC 14.00 thou/uL (4.3-10.9) H 04/14/24 06:05 Hgb 13.2 g/dL (12.0-15.0) 04/14/24 06:05 Hct 39.9 % (36.0-45.0) 04/14/24 06:05 Plt Count 110 thou/uL (152-406) L 04/14/24 06:05 PT 11.8 SECONDS (9.4-12.5) 04/12/24 11:43 INR 1.06 04/12/24 11:43 APTT 38.0 SECONDS (24.3-36.9) H 04/12/24 11:43 Sodium 135 mEq/L (136-145) L 04/14/24 06:05 Potassium 4.4 mEq/L (3.5-5.1) 04/14/24 06:05 BUN 21 mg/dL (7-18) H 04/14/24 06:05 Creatinine 0.69 mg/dL (0.55-1.02) 04/14/24 06:05 Glucose 290 mg/dL (74-106) H 04/14/24 06:05 Magnesium 1.8 mg/dL (1.6-2.4) 04/14/24 06:05 Total Bilirubin 0.7 mg/dL (0.2-1.0) 04/12/24 11:43 AST 13 U/L (15-37) L 04/12/24 11:43 ALT 20 U/L (13-56) 04/12/24 11:43 Alkaline Phosphatase 109 U/L (45-117) 04/12/24 11:43 Home Medications: PARoxetine HCL [Paxil*] 20 mg PO DAILY 10/29/16 Atorvastatin Calcium [Lipitor] 80 mg PO DAILY #30 tablet 11/10/19 Metoprolol Tartrate 12.5 mg PO DAILY #30 tablet 11/10/19 Quetiapine Fumarate [Seroquel] 100 mg PO BEDTIME 11/10/19 glipiZIDE [Glipizide] 5 mg PO DAILY #90 tablet 11/10/19 Trazodone HCl 100 mg PO BEDTIME 04/12/24 Glipizide [Glipizide ER] 10 mg PO DAILY #14 tab 04/14/24 levoFLOXacin [Levaquin] 500 mg PO DAILY #3 tab 04/14/24 predniSONE [Deltasone] 5 mg PO DAILY #5 tab 04/14/24 predniSONE [Deltasone] 20 mg PO DAILY #8 tab 04/14/24 New Medications: Glipizide [Glipizide ER] 10 mg PO DAILY #14 tab levoFLOXacin [Levaquin] 500 mg PO DAILY #3 tab predniSONE [Deltasone] 20 mg PO DAILY #8 tab predniSONE [Deltasone] 5 mg PO DAILY #5 tab Physician Discharge Instructions: Ms. Painting did well over the course of her hospitalization. She rec'd Levaquin and Solumedrol. FSBS tricia with initiation of steroids and she was placed on sliding scale insulin. She has not had an oxygen requirement since yesterday (04/13/24) and is eager to go home. New medications Levaquin 500mg po x 3 additional days Prednisone 40mg po daily x 3d, 20mg po daily x 3days, 10mg po daily x 3 days, 5mg po daily x 5 days increase Glipizide to 10mg daily x 2 weeks and then return to 5mg po daily Dulera 2 inhalations twice daily Rinse mouth after each use Continue all other home medicines as previously prescribed GOAL: Clear understanding of disease process Diet: ADA, low sodium Activity: ad lópez INSTRUCTIONS: Physician Discharge Instructions: Okay to DC IV and DC home Follow-up with primary care provider in 1 to 2 weeks Follow-up with pulmonology in 1 to 2-weeks Please call the inpatient unit for any questions or concerns regarding hospital stay Return to the ER for worsening symptoms Diet: ADA Activity: Ad lópez Followup: NONE,NONE [Primary Care Provider] -
[2024-04-14] MEDS: DULERA 200/5 (MOMETASONE/FORMOTEROL) INHALER IH SCH (10:35)
== END 2024-04-14 11:39 | disposition home or self-care (01) | DRG 190 ==
LOC: ER 10:51 → ERHOLD 13:36 → 2ND 14:20
PROVIDERS: ADMIT Internal Medicine; ATTEND Internal Medicine Sleep Medicine
DX: J44.1 Chronic obstructive pulmonary disease with (acute) exacerbation (principal); J96.01 Acute respiratory failure with hypoxia; E87.20 Acidosis, unspecified; E11.9 Type 2 diabetes mellitus without complications; E78.00 Pure hypercholesterolemia, unspecified; I10 Essential (primary) hypertension; F17.210 Nicotine dependence, cigarettes, uncomplicated; Z88.5 Allergy status to narcotic agent; Z79.82 Long term (current) use of aspirin; Z11.52 Encounter for screening for COVID-19; Z79.52 Long term (current) use of systemic steroids; Z79.84 Long term (current) use of oral hypoglycemic drugs; Z79.899 Other long term (current) drug therapy
CPT/HCPCS: 36415; 71045; 80048; 80053; 82947; 83605; 83735; 83880; 84484; 85025; 85610; 85730; 87040; 87070; 87081; 87804; 87811; 93005; 94640; 94760; 96361; 96365; 96366; 96375; 99285; J1650; J2919; J3475; J3535; J7040; J7614; J7644